=== PATIENT | female | born 1995 | race African-American/Black ===

== ENCOUNTER 2025-02-07 12:00 | Emergency (ER) | payer MEDICARE, SELFPAY ==
--- OUTSIDE RECORDS SUMMARY | 2024-11-16 05:30 | XMS_ITS ---
Author Organization [facility] Address [address] [place] [address] Care Team Providers Care Pre Owned Sales Consultant Name Role Phone Haja Doyle Primary Care Provider REASON FOR VISIT 4 WEEK F/U Social History Sex Assigned At : Social History Observation Description Sex Assigned At Female Encounters Encounter Location Date Provider Diagnosis [facility] [address] [place] [address] 11/16/2024 Haja Doyle Plan Of Treatment Next Appt Details Provider Name:Haja Doyle , 02/21/2025 01:00:00 PM, [address] [place], [address], Progress Notes * OMER LUIS DDOB:[birth year] (29 yo F)Acc No.[id number]:11/16/2024 Progress Notes Patient: Savanah HOLMAN OMER Valadez .3 Appointment Provider: Daly Doyle MD :1995 A ge:29 Y S ex:Female Date:11/16/2024 Address:[facility], [address], [id number] Subjective: * Chief Complaints: * 1 . 4 WEEK F/U. * Medical History: Objective: * Vitals: Assessment: Plan: * Treatment: * Images: * Electronic signature of Yung Doyle MD on 02/07/2025 at 12:16 PM EDT Sign off status: Pending * Appointment Provider: Daly Doyle MD Date: 0 11/16/2024 Generated for Jeremy elias/La/Donovan on: 0 02/07/2025 12:16 PM EDT
--- OUTSIDE RECORDS SUMMARY | 2024-11-23 06:45 | XMS_ITS ---
Author Organization [facility] Address [address] [place] [address] Care Team Providers Care Complaint Manager Name Role Phone Haja Doyle Primary Care Provider [phone] REASON FOR VISIT PAP Social History Sex Assigned At : Social History Observation Description Sex Assigned At Female Encounters Encounter Location Date Provider Diagnosis [facility] [address] [place] [address] 11/23/2024 Haja Doyle Plan Of Treatment Next Appt Details Provider Name:Haja Doyle , 02/21/2025 01:00:00 PM, [address] [place], [address], Progress Notes * OMER LUIS DDOB:[birth year] (29 yo F)Acc No.[id number]:11/23/2024 Progress Notes Patient: GARLAND FLORENCEADIJAH Allyson .3 Appointment Provider: Daly Doyle MD :1995 A ge:29 Y S ex:Female Date:11/23/2024 Address:[address], [address], [id number] Subjective: * Chief Complaints: * 1 . PAP. * Medical History: Objective: * Vitals: Assessment: Plan: * Treatment: Care Plan: * Problems: * Images: * Electronic signature of Yung Doyle MD on 02/07/2025 at 12:15 PM EDT Sign off status: Pending * Appointment Provider: Daly Doyle MD Date: 0 11/23/2024 Generated for Jeremy elias/La/Donovan on: 0 02/07/2025 12:15 PM EDT
--- OUTSIDE RECORDS SUMMARY | 2024-12-13 09:15 | XMS_ITS ---
Author Organization [facility] Address [address] [place] [address] Care Team Providers Care Bath Steward/Stewardess Name Role Phone Haja Doyle Primary Care Provider REASON FOR VISIT pap Social History Sex Assigned At : Social History Observation Description Sex Assigned At Female Encounters Encounter Location Date Provider Diagnosis [facility] [address] [place] [address] 12/13/2024 Haja Doyle Plan Of Treatment Next Appt Details Provider Name:Haja Doyle , 02/21/2025 01:00:00 PM, [address] [place], [address], Progress Notes * OMER LUIS DDOB:[birth year] (29 yo F)Acc No.[id number]:12/13/2024 Progress Notes Patient: GARLAND FLORENCEADIJAH Allyson .3 Appointment Provider: Daly Doyle MD :1995 A ge:29 Y S ex:Female Date:12/13/2024 Address:[address], [address], [id number] Subjective: * Chief Complaints: * 1 . Pap. * Medical History: Objective: * Vitals: Assessment: Plan: * Treatment: Care Plan: * Problems: * Images: * Electronic signature of Yung Doyle MD on 02/07/2025 at 12:15 PM EDT Sign off status: Pending * Appointment Provider: Daly Doyle MD Date: 0 12/13/2024 Generated for Jeremy elias/La/Donovan on: 0 02/07/2025 12:15 PM EDT
[2025-02-07 12:04] VITALS: BP 133/104; PULSE 119; TEMP 37.3; O2SAT 99; BMI 57.3
--- OUTSIDE RECORDS SUMMARY | 2025-02-07 12:16 | XMS_ITS | Patient Health Record ---
Author Organization [facility] Address [address] [place] [address] Care Team Providers Care Service Consultant Name Role Phone Haja Doyle Primary Care Provider [phone] Tello Huynh Unavailable [phone] Urban Crouch Unavailable [phone] Jonel Gatica Unavailable [phone] Georgette Lemos Unavailable [phone] Allergies No Known Allergies Results Component Value Reference Range Notes Rapid COVID-19 Reviewed date:04/17/2024 09:48:45 AM Interpretation:NEG Performing Lab: Notes/Report: NEG Results NEG Reason For Referral Reason SCHEDULED 10/16/24 Hypersomnia, BMI 59, mouth breathing, smoker Diagnosis 1 Hypersomnia (G47.10) Referral Organization [facility] ices Referring Provider First Name Urban Referring Provider Last Name Willa Referring Provider Speciality [facility] Referred Provider [facility] SLEEP [facility] ER, . Referred Provider Specialty Sleep Medici ne Referral Priority Routine Medications Medication SIG (Take, Route, Frequency, Duration) Notes Start Date End Date Status Wegovy 0.25 MG/0.5ML INJECT 0.5 ML SUBCUTANEOUSLY ONE TIME PER WEEK for 28 Unknown MiraLax 17 GM/SCOOP 1 scoop mixed with 8 ounces of fluid Orally Once a day Unknown Albuterol Sulfate HFA 108 (90 Base) MCG/ACT 1 puff as needed Inhalation every 4 hrs for 30 days Active ZyPREXA 15 MG 1 tablet Orally Once a day @ for 30 days *SPROUT 12/02/2018 Active traZODone HCl 100 MG 1 tablet at bedtime Orally @ HS w/100 mg tab. *SPROUT Active Depakote 500 MG 1 tablet Orally Twic e a day w/250 mg tab to = 750mg *SPROUT Active Haloperidol 10 MG 2 tablets Orally twi ce daily *SPROUT Active Benztropine Mesylate 1 MG 1 tablet in the a.m. & 2 tablets @ HS Orally BID *SPROUT Active Pantoprazole Sodium 40 MG 1 tablet Orally Once a day Active Naproxen 500 MG 1 tablet with food o r milk as needed Orally every 12 hrs Active Amoxicillin 875 MG 1 tablet Orally Twic e a day Active Social History Tobacco Use: Social History Observation Description Date Details (start date - stop date) Current Smoker NA - NA Sex Assigned At : Social History Observation Description Sex Assigned At Female Tobacco Screen: Question Answer Notes Are you a: current smoker How often do you smoke cigarettes? some days, bu t not every day How many cigarettes a day do you smoke? 5 or les s Sexual Hx: Question Answer Notes Had sex in the last 12 months (vaginal, oral, or anal)? Yes with Both Men and Women Use protection? Yes How often? Most of the time Prevention Strategies discussed: Condoms Have you ever had an STD? Yes Other? Yes LMP: 09/15/2022 Alcohol Screening: Question Answer Notes Did you have a drink contain ing alcohol in the past year? Yes How often did you have a dri nk containing alcohol in the past year? Monthly or less (1 point) How many drinks did you have on a typical day when you were drinking in the past year? 1 or 2 (0 points) How often did you have six o r more drinks on one occasion in the past year? Never (0 points) Points 1 Interpretation Negative PRAPARE Question Answer Notes Date Completed/Updated: 09/13/2024 What is your current housing situation? I have h ousing Are you worried about losing your housing? No What is the highest level of school that you have finished? 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 Check all that apply I do not have problems meeting my needs Has lack of transportation k ept you from medical appointments, meetings, work or from getting things needed for daily living? No How often do you see or talk to people that you care about and feel close to? (For example: talking to friends on the phone, visiting friends or family, going to hinduism or club meetings) 1 or 2 times a week How stressed are you? Stress is when someone feels tense, nervous, anxious, or cant sleep at night because their mind is troubled A little bit In the past year have you sp ent more than 2 nights in a row in a fpc, residential, shelter center, or juvenile correctional facility? No Are you a refugee? No What country are you from? [place] Do you feel physically and e motionally safe where you currently live? Yes In the past year, have you b een afraid of your partner or ex-partner? No PRAPARE Score: 4 AUDIT-C (Standard) Question Answer Notes Did you have a drink contain ing alcohol in the past year? Yes How often did you have six o r more drinks on one occasion in the past year? Less than monthly (1 point) How many drinks did you have on a typical day when you were drinking in the past year? 1 or 2 drinks (0 point) How often did you have a dri nk containing alcohol in the past year? Monthly or less (1 point) Points 2 Interpretation Negative Tobacco Control (Standard) Question Answer Notes Tobacco use: Current smoker Section Notes: No alcohol or other drug use- smokes 1-2 black and milds a day or every other day. 07/29/15 Smokes 1 cigar a week. 10/04/18 Pt reports smoking black and milds, marijuana, and drinking wine 12/01/18 No alcohol or other drug use - smokes 1-2 black and milds a day or every other day. No alcohol or other drug use - smokes 1-2 black and milds a day or every other day. No alcohol or other drug use No alcohol or other drug use No alcohol or other drug use No alcohol or other drug use No alcohol or other drug use No alcohol or other drug use No alcohol or other drug use - smokes 1-2 black and milds a day or every other day. No alcohol or other drug use- smokes 1-2 black and milds a day or every other day. 07/29/15 Smokes 1 cigar a week. No alcohol or other drug use- smokes 1-2 black and milds a day or every other day. 07/29/15 Smokes 1 cigar a week. 10/04/18 Pt reports smoking black and milds, marijuana, and drinking wine No alcohol or other drug use- smokes 1-2 black and milds a day or every other day. 07/29/15 Smokes 1 cigar a week. 10/04/18 Pt reports smoking black and milds, marijuana, and drinking wine 12/01/18 No alcohol or other drug use No alcohol or other drug use- smokes 1-2 black and milds a day or every other day. 07/29/15 Smokes 1 cigar a week. Problems Problem Type SNOMED Code ICD Code Onset Dates Problem Status W/U Status Risk Notes Problem 1697998 Hypocalcemia (E83.51) Active confirmed Problem Tobacco user (932758777) Nicotine dependence, unspecified, uncomplicated (F17.200) Active confirmed Problem 86539097 Schizoaffective Disorder, Bipolar type (F25.0) Active confirmed Problem 96147542 Mouth breathing (R06.5) Active confirmed Problem 226655495 Somnolence (R40.0) Active confirmed Problem 95557033 Essential hypertension (I10) Active confirmed Problem 507929956 Morbid obesity (E66.01) Active confirmed Problem 13608190 Hypersomnia (G47.10) Active confirmed Problem Body mass index 40+ - severely obese (807563497) Body mass index (BMI) 45.0-49.9, adult (Z68.42) Active confirmed Problem 029940588 PCOS (polycystic ovarian syndrome) (E28.2) Active confirmed Problem 75407487 Constipation, unspecified constipation type (K59.00) Active confirmed Problem 3189099 Unprotected sex (Z72.51) Active confirmed Problem 36128175 Chronic fatigue (R53.82) Active confirmed Problem 230098193 Insomnia, unspec ified type (G47.00) Active confirmed Problem 677864936 BMI 50.0-59.9, a dult (Z68.43) Active confirmed Problem 19294184 Hypercholesterem ia (E78.00) Active confirmed Problem 567147664 Elevated LDL cholesterol level (E78.00) Active confirmed Problem 975591074 Major depressive disorder, remission status unspecified, unspecified whether recurrent (F32.9) Active confirmed Problem 695995842 Insulin resistan ce (E88.81) Active confirmed Problem 48441703 Cigarette smoker (F17.210) Active confirmed Vital Signs Heart Rate 102 /min 09/13/2024 Temperature 98.9 degrees Fahrenheit 09/13/2024 Respiratory Rate 20 /min 09/13/2024 Oximetry 92 % 09/13/2024 Blood pressure diastolic 84 mm Hg 09/13/2024 Height 66 in 09/13/2024 Blood pressure systolic 132 mm Hg 09/13/2024 Weight 366.8 lbs 09/13/2024 BMI 59.2 kg/m2 09/13/2024 Encounters Encounter Location Date Provider Diagnosis [facility] [address] [place] [address] 03/29/2024 [facility] [address] [place] [address] 04/04/[address] [facility] [address] [place] [address] 09/05/2024 Haja Doyle [address] [place] [address] 10/17/2024 Haja Doyle [facility] [address] [place] [address] 04/17/2024 Haja Doyle Nicotine dependence, unspecified, uncomplicated F17.200 ; Morbid obesity E66.01 and Exposure to confirmed case of COVID-19 Z20.822 [facility] [address] [place] [place] [address] 09/13/2024 Urban Ramirezl Cigarette smoker F17.210 ; Hypersomnia G47.10 ; BMI 50.0-59.9, adult Z68.43 ; Mouth breathing R06.5 ; Chronic fatigue R53.82 and Morbid obesity E66.01 Assessments Encounter Date Diagnosis (ICD Code) Assessment Notes Treatment Notes Treatment Clinical Notes Section Notes 04/17/2024 Nicotine dependence, unspecified, uncomplicated (ICD-10 - F17.200) 04/17/2024 Morbid obesity (ICD-10 - E66.01) Discussed patient concerns regarding covid, weight, and wheezing. A covid test in the office was negative today. We will start the patient on Wegovy for her weight loss concerns. We reviewed healthy eating habits along with regular exercise to support weight loss. I will refill her albuterol inhaler today. Risks, benefitis, and complications of treatment plan were explained. Patient is agreeable to this plan and denies any concerns. She will follow up in 1 month. 09/13/2024 Hypersomnia (ICD-10 - G47.10) 09/13/2024 Cigarette smoker (ICD-10 - F17.210) 09/13/2024 BMI 50.0-59.9, adult (ICD-10 - Z68.43) 04/17/2024 Exposure to confirmed case of COVID-19 (ICD-10 - Z20.822) 09/13/2024 Mouth breathing (ICD-10 - R06.5) 09/13/2024 Chronic fatigue (ICD-10 - R53.82) 09/13/2024 Morbid obesity (ICD-10 - E66.01) 04/17/2024 Other Body Mass Index: Care Instructions material was published 09/13/2024 Other Learning About Benefits of Quitting Smoking material was published, Learning About Benefits of Quitting Smoking material was published, Body Mass Index: Care Instructions material was published Omer is here for ER FU. Results reviewed aside from tachycardia plus minimal elevation of carboxyhemglobin work up was benign. GF at home smokes much more and in the house. On going GI symptoms but with work up pending. Last colonoscopy Dr. Denton incomplete bowel prep, started on Linsess needs more fiberous food. Slight tachycardia 102, sat 92% otherwise vitals normal. Crowded airway, BMI 59.2, loud breathing, excessive somnolense on exam. Denies gas heating but smokes cigarettes 1 pack a week has patches and gum at home. Noncompliant. Patient educated. Red oral cavity is from undissolved truong-aid powder. BMI 59. All risk factors/Signs/Syx present for VIK, no history sleep study. Brain fog/dizziness likely to improve once allocated for CPAP which is likely. Resume follow up with PCP. Plan Of Treatment Next Appt Details Provider Name:Haja Doyle , 02/21/2025 01:00:00 PM, [address], [place], [address], Insurance Providers Payer Name Payer Address Payer Phone Subscriber Number Group Number Insured Name Patient Relationship to Insured Coverage Start Date Coverage End Date [employer] MDCR GOLD PLUS HMO [address] [address] [place] [address] [id number] FARA LUISJAH Self - patient is the insured 4 MEDICAID SEC TO MCARE ADV [address] [place] [address] [id number] GARLAND LUISADIJAH Self - patient is the insured 1 MEDICARE CGS 1 JENNY SIL[facility] [address] [phone] [id number] OMER LUIS Self - patient is the insured 1 Medical (General) History Medical History History ICD Code LEARNING DISABILITY DEPRESSION attempted suicide Jul 2013 Surgical History Surgery Date(Month/Year) removed skin lesion on right forearm EGD 01/2021 Hospitalization History Reason Date(Month/Year) Behavioral Health 10/2018
--- NOTE | 2025-02-07 12:21 | ECG_ITS ---
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 Measurements Intervals [place] Rate: 88 P: 44 [place]: 134 QRS: 41 QRSD: 78 T: -4 QT: 342 QTc: 388 Interpretive Statements 1100 Sinus rhythm 4068 Nonspecific Twave abnormality Abnormal ECG No previous ECG available for comparison Electronically Signed On 02-07-2025 17:53:36 EDT by JOLIE UNDERWOOD M.D.
[2025-02-07 12:53] LABS: Bilirubin Urine NEGATIVE (NEGATIVE); Blood Urine LARGE (NEGATIVE); Clarity Urine SL CLOUDY (CLEAR); Color Urine LT. YELLOW (YELLOW); Glucose Urine UA NEGATIVE (NEGATIVE); Ketones Urine NEGATIVE (NEGATIVE); Leukocyte Esterase Urine TRACE (NEGATIVE); Nitrite Urine NEGATIVE (NEGATIVE); Protein Urine TRACE mg/dL (NEG/TRACE); Urine Microscopic Indicated YES; pH Urine 7.5 (5.0-9.0)
[2025-02-07 13:02] LABS: Bacteria Urine SMALL #/HPF (NONE SEEN); Mucus Urine NONE SEEN (NONE SEEN); RBC Urine 50-75 #/HPF (0-2); Squamous Epithelial Cell Urine FEW #/LPF (NONE/RARE); WBC Urine 0-2 #/HPF (NONE SEEN)
[2025-02-07 13:03] LABS: Cast Seen? NONE SEEN #/LPF (NONE SEEN); Crystals Seen? None Seen #/HPF (None Seen); Urine Culture Indicated YES-FRMC
[2025-02-07 13:06] LABS: Basophils Percent Auto 0.7 % (0.2-2.0); Eosinophils Absolute Auto 0.3 10^3/uL (0.0-0.7); Eosinophils Percent Auto 4.1 % (0.9-7.0); Immature Granulocytes Abs Auto 0.02 10^3/uL (0.00-0.03); Immature Granulocytes Pct Auto 0.3 % (0.0-0.5); Lymphocytes Absolute Auto 2.2 10^3/uL (1.2-3.8); Lymphocytes Percent Auto 35.4 % (20.5-60.0); Mean Corpuscular HGB Conc 32.4 g/dL (29.9-35.2); Mean Corpuscular Hemoglobin 29.5 pg (26.7-34.0); Mean Corpuscular Volume 90.9 fL (81.0-99.0); Mean Platelet Volume 10.3 fL (9.5-13.5); Monocytes Absolute Auto 0.6 10^3/uL (0.3-0.8); Monocytes Percent Auto 10.2 % (1.7-12.0); Neutrophils Percent Auto 49.3 % (43.0-75.0); Platelet Count 316 10^3/uL (150-450); Red Blood Count 4.07 10^6/uL (4.20-5.40); Red Cell Distribution Width 13.2 % (11.0-15.0); White Blood Count 6.2 10^3/uL (4.0-11.0)
[2025-02-07 13:17] LABS: INR 1.07; Prothrombin Time 11.3 sec (9.0-11.6)
[2025-02-07 13:19] LABS: HCG Qualitative NEGATIVE (NEGATIVE); Internal Control Within Normal Limits
[2025-02-07 13:22] LABS: Alanine Aminotransferase 13 U/L (14-59); Albumin Globulin Ratio 0.8; Albumin Level 3.1 g/dL (3.4-5.0); Alkaline Phosphatase 77 U/L (46-116); Anion Gap 11.5; Aspartate Amino Transferase 7 U/L (15-37); Bilirubin Total 0.2 mg/dL (0.2-1.0); Calcium 8.5 mg/dL (8.5-10.1); Carbon Dioxide 29.4 mmol/L (21.0-32.0); Chloride 103 mmol/L (98-107); Estimated GFR (African America >60 (>=60 mL/min/1.73m^2); Estimated GFR (Non-African Ame >60 (>=60 mL/min/1.73m^2); Globulin 4.1 g/dL; Glucose 81 mg/dL (74-106); Potassium 3.9 mmol/L (3.5-5.1); Sodium 140 mmol/L (136-145); Total Protein 7.2 g/dL (6.4-8.2)
[2025-02-07 13:27] LABS: Troponin I High Sensitivity <4.0 pg/mL (4.0-51.3)
--- NOTE | 2025-02-07 13:27 | CT_ITS ---
The [address] [address] Patient Name: OMER LUIS MRN: [id number] date: 1995 Sex: F Assigned Patient Location: ER Current Patient Location: ER Accession/Order Number: [id number] Exam Date: 02/07/2025 13:58 Report Date: 02/07/2025 14:04 At the request of: MARCE FRANK MD Procedure: CT abdomen pelvis wo con CT Abdomen and Pelvis withoutcontrast TECHNIQUE: Axial imaging with 2-D reconstruction. . The CT exam was performed using one or more the following dose reduction techniques: Automated exposure control, adjustment of the MA and/or Kv according to patient size, or use of the iterative reconstruction technique. COMPARISON: None History: Abdominal pain. Hematuria. Blood in stool. Right lower quadrant pain for one year. LIMITATIONS: None LOWER THORAX Unremarkable LIVER: Unremarkable GALLBLADDER: No gallbladder abnormality identified. BILE DUCTS: No dilatation SPLEEN: Unremarkable PANCREAS: Unremarkable ADRENAL GLANDS: Unremarkable KIDNEYS:Unremarkable AORTA: No abdominal aortic aneurysm identified. RETROPERITONEUM: No significant retroperitoneal abnormalities identified. MESENTERY:Unremarkable STOMACH:Unremarkable SMALL BOWEL: The small bowel loops are nondistended. APPENDIX: The appendix is normal. COLON: Moderate burden of stool throughout the colon. URINARY BLADDER: Urinary bladder is unremarkable. REPRODUCTIVE SYSTEM: Reproductive structures are unremarkable. PNEUMOPERITONEUM: None PERITONEAL FLUID:None BONY STRUCTURES: Unremarkable ABDOMINAL WALL: Unremarkable CT/CT abdomen pelvis wo con IMPRESSION: No nephrolithiasis or obstructive uropathy. Moderate constipation. Impression dictated by: William Ashley M.D. 02/07/2025 2:04 PM Dictation Location: [place] [address] Electronically authenticated by: [id number] Y Date: 02/07/2025 14:04
[2025-02-07] MEDS: FAMOTIDINE/PF 20 MG/2 ML VIAL IV (13:54)
[2025-02-07] MEDS: KETOROLAC TROMETHAMINE 30 MG/ML VIAL 15 MG IVP (13:54)
--- NOTE | 2025-02-07 14:00 | ED.ABDPAIN1 ---
HPI - Abdominal Pain General Chief Complaint: Abdominal Pain Stated Complaint: ABDOMINAL PAIN Time Seen by Provider: 02/07/25 12:14 Source: patient Mode of arrival: walk-in History of Present Illness HPI narrative: The patient 29-year-old female who is coming to the ER with a history of chronic abdominal pain but there is exacerbation the pain for the last few days, he mentioned that for the last 2 to 3 days she has been having the left upper quadrant pain that is severe in addition to left lower quadrant. The pain associated with constipation and sometimes blood in stool although the patient admits that she have history of constipation and she does have history of hemorrhoids The patient mentioned that she denies any fever chills or any other complaint she has no nausea no vomiting but the last menstruation was 2 months ago and she is having her menstruation right now as well Related Data Home Medications ?Medication ?Instructions ?Recorded ?Confirmed benztropine 1 mg tablet 1 mg PO QAM 02/07/25 02/07/25 benztropine 2 mg tablet 2 mg PO QPM 02/07/25 02/07/25 divalproex 250 mg tablet,delayed 250 mg PO BID 02/07/25 02/07/25 release haloperidol 10 mg tablet 10 mg PO DAILY 02/07/25 02/07/25 olanzapine 15 mg tablet 15 mg PO DAILY 02/07/25 02/07/25 trazodone 100 mg tablet 100 mg PO DAILY 02/07/25 02/07/25 Previous Rx's ?Medication ?Instructions ?Recorded bisacodyl 5 mg tablet,delayed 5 mg PO DAILY PRN constipation #10 02/07/25 release (Dulcolax (bisacodyl)) tabs magnesium citrate 296 ml PO ONCE #296 mL 02/07/25 Allergies Allergy/AdvReac Type Severity Reaction Status Date / Time No Known Drug Allergies Allergy Verified 02/07/25 12:07 Review of Systems ROS Status of ROS 10 or more systems reviewed and unremarkable except as noted in history and below PFSH PFSH Social History Little interest or pleasure in doing things: not at all Feeling down, depressed, or hopeless: not at all Exam Narrative Exam Narrative: Nurses notes and vital signs reviewed and patient is not hypoxic. General: Well-appearing and in no apparent distress. Skin: Warm, dry, no pallor noted. No rash. Head: Normocephalic, atraumatic. Neck: Supple, non-tender. Cardiovascular: Regular Rate and Rhythm without murmur, gallop or rub. Respiratory: No accessory muscle use or respiratory distress. Lungs are clear to auscultation, no wheezing, rales or rhonchi Chest Wall: no tenderness Back: No midline thoracic or lumbar vertebral tenderness. No CVA tenderness Musculoskeletal: normal ROM, no calf or popliteal tenderness, no lower extremity edema/swelling GI: Abdomen is soft, left upper quadrant tenderness on the palpation as well as left lower quadrant tenderness Neurological: A&O x4. No cranial nerve dysfunction observed. Constitutional Vital Signs, click to edit/add: Last Vital Signs Temp 99.2 F 02/07/25 12:04 Pulse 76 02/07/25 14:59 Resp 16 02/07/25 14:59 BP 119/92 H 02/07/25 14:59 Pulse Ox 97 02/07/25 14:59 O2 Del Method Room Air 02/07/25 14:59 Course Vital Signs Vital signs: Vital Signs Temperature 99.2 F 02/07/25 12:04 Pulse Rate 119 H 02/07/25 12:04 Respiratory Rate 20 02/07/25 12:04 Blood Pressure 133/104 H 02/07/25 12:04 Pulse Oximetry 99 02/07/25 12:04 Oxygen Delivery Method Room Air 02/07/25 12:04 Temperature 99.2 F 02/07/25 12:04 Pulse Rate 76 02/07/25 14:59 Respiratory Rate 16 02/07/25 14:59 Blood Pressure 119/92 H 02/07/25 14:59 Pulse Oximetry 97 02/07/25 14:59 Oxygen Delivery Method Room Air 02/07/25 14:59 MDM - Abdominal Pain MDM Narrative Medical decision making narrative: The patient EKG showing sinus rhythm with a heart rate of [address] elevation or depression The patient CBC and chemistry showed no acute significant pathology but there was a lot of hematuria in her urine and with her history of having her menstruation it is hard to tell if this pain is secondary to that or due to a kidney stone as well although the patient her pain is mostly left upper quadrant not left flank The patient CT of the abdomen pelvis showed that that she has constipation no acute other significant pathology test is negative Urinalysis showed no UTI The patient was treated in the ER with Toradol discharged home with magnesium citrate as 1 dose in addition to starting Dulcolax daily as needed for constipation on the next day The patient is to follow up with primary care physician in next 2-3 days or to return to the emergency department should any of the signs or symptoms worsen or new symptoms develop. The patient agrees with the following Diagnosis and Treatment plan and the patient will be discharged home. Lab Data Labs: Lab Results 02/07/25 02/07/25 Range/Units 12:29 12:50 WBC 6.2 (4.0-11.0) 10^3/uL RBC 4.07 L (4.20-5.40) 10^6/uL Hgb 12.0 (12.0-16.0) g/dL Hct 37.0 (36.0-48.0) % MCV 90.9 (81.0-99.0) fL MCH 29.5 (26.7-34.0) pg MCHC 32.4 (29.9-35.2) g/dL RDW 13.2 (11.0-15.0) % Plt Count 316 (150-450) 10^3/uL MPV 10.3 (9.5-13.5) fL Neut % (Auto) 49.3 (43.0-75.0) % Lymph % (Auto) 35.4 (20.5-60.0) % [place] % (Auto) 10.2 (1.7-12.0) % Eos % (Auto) 4.1 (0.9-7.0) % Baso % (Auto) 0.7 (0.2-2.0) % Neut # (Auto) 3.0 (1.4-6.5) 10^3/uL Lymph # (Auto) 2.2 (1.2-3.8) 10^3/uL [place] # (Auto) 0.6 (0.3-0.8) 10^3/uL Eos # (Auto) 0.3 (0.0-0.7) 10^3/uL Baso # (Auto) 0.0 (0.0-0.1) 10^3/uL Abs Immat Gran (auto) 0.02 (0.00-0.03) 10^3/uL Imm/Tot Granulo (auto) 0.3 (0.0-0.5) % PT 11.3 (9.0-11.6) sec INR 1.07 Sodium 140 (136-145) mmol/L Potassium 3.9 (3.5-5.1) mmol/L Chloride 103 (98-107) mmol/L Carbon Dioxide 29.4 (21.0-32.0) mmol/L Anion Gap 11.5 BUN 7.0 (7.0-18.0) mg/dL Creatinine 0.78 (0.55-1.02) mg/dL Est GFR ( Amer) >60 (>=60 mL/min/1.73m^2) Est GFR (Non-Af Amer) >60 (>=60 mL/min/1.73m^2) BUN/Creatinine Ratio 9.0 Glucose 81 (74-106) mg/dL Calcium 8.5 (8.5-10.1) mg/dL Total Bilirubin 0.2 (0.2-1.0) mg/dL AST 7 L (15-37) U/L ALT 13 L (14-59) U/L Alkaline Phosphatase 77 (46-116) U/L Troponin I High Sens <4.0 L (4.0-51.3) pg/mL Total Protein 7.2 (6.4-8.2) g/dL Albumin 3.1 L (3.4-5.0) g/dL Globulin 4.1 g/dL Albumin/Globulin Ratio 0.8 Serum HCG, Qual Negative (NEGATIVE) Urine Color Lt. yellow (YELLOW) Urine Clarity Sl cloudy (CLEAR) Urine pH 7.5 (5.0-9.0) Ur Specific [place] 1.010 (1.005-1.025) Urine Protein Trace (NEG/TRACE) mg/dL Urine Glucose (UA) Negative (NEGATIVE) mg/dL Urine Ketones Negative (NEGATIVE) mg/dL Urine Occult Blood Large A (NEGATIVE) Urine Nitrite Negative (NEGATIVE) Urine Bilirubin Negative (NEGATIVE) Urine Urobilinogen 1.0 (0.2-1.0) EU/dL Ur Leukocyte Esterase Trace A (NEGATIVE) Urine RBC 50-75 A (0-2) #/HPF Urine WBC 0-2 A (NONE SEEN) #/HPF Ur Squamous Epith Cells Few A (NONE/RARE) #/LPF Urine Crystals None seen (None Seen) #/HPF Urine Bacteria Small A (NONE SEEN) #/HPF Urine Casts None seen (NONE SEEN) #/LPF Urine Mucus None seen (NONE SEEN) Ur Culture Indicated? Yes-[facility] [place] Discharge Plan Discharge Chief Complaint: Abdominal Pain Clinical Impression: Constipation, Abdominal pain Patient Disposition: Home, Self-Care Time of Disposition Decision: 14:35 Condition: Good Prescriptions / Home Meds: New magnesium citrate Solution 296 ml PO ONCE Qty: 296 0RF bisacodyl [Dulcolax (bisacodyl)] 5 mg tablet,delayed release (DR/EC) 5 mg PO DAILY PRN (Reason: constipation) Qty: 10 0RF No Action benztropine 1 mg tablet 1 mg PO QAM benztropine 2 mg tablet 2 mg PO QPM divalproex 250 mg tablet,delayed release (DR/EC) 250 mg PO BID haloperidol 10 mg tablet 10 mg PO DAILY olanzapine 15 mg tablet 15 mg PO DAILY trazodone 100 mg tablet 100 mg PO DAILY Print Language: Setswana Instructions: Constipation (DC) Referrals: [facility] [Primary Care Provider] - 1 week
[2025-02-07 14:59] VITALS: BP 119/92; PULSE 76; O2SAT 97
== END 2025-02-07 14:59 | disposition home or self-care (01) ==
PROVIDERS: Emergency Provider Emergency Medicine
DX: K59.00 Constipation, unspecified (principal); R10.84 Generalized abdominal pain
CPT/HCPCS: 36415; 74176; 80053; 81001; 84484; 84703; 85025; 85610; 87086; 93005; 96374; 96375; 99285; J1885; J3490

== ENCOUNTER 2025-03-19 15:57 | Outpatient (OUT) | payer MEDICARE, SELFPAY ==
--- OUTSIDE RECORDS SUMMARY | 2024-10-12 09:59 | XMS_ITS | Continuity of Care Document ---
Author Organization [facility] Address [address] [place] [address] Phone Care Team Providers Care Society Reporter Name Role Phone Mykelquinton MARY JANEFarida Unavailable [...] Oral Eval ROUTINE VENIPUNCTURE OFFICE/OUTPATIENT VISIT, [facility] URINE TEST Obtaining screen pap smear CA screen;pelvic/breast exam OFFICE/OUTPATIENT VISIT, [facility] URINE TEST PREV VISIT, EST, AGE 18-39 [...] 18-39 [facility]DH SPECIMEN HANDLING (GC/CHLAMYDIA) December [facility] FP MEDICAID [facility] FP MEDICAID [facility] MEDICAID OFFICE/OUTPATIENT VISIT, EST [facility] MEDICAID URINE TEST Medroxyprogesterone Acetate 104 [...] Diagnoses Date Provider Providers Copied on Encounter [facility], [address] [place] [address], [id number] , [place] tel: [phone] Dental Clinic Dental limited (chief complaint) Encounter for screening for dental disorders 5 Cande Iqbal. . [phone] OFFICE/OUTPA TIENT VISIT, [facility], [address] [place] [address], [id number] , [place] tel: [phone] [facility] annual exam (chief complaint) Encounter for gynecological examination (general) (routine) without abnormal findingsBody mass index [BMI] 60.0-69.9, adultEncounter for screening for HIVEncounter for STD screeningOther problem related to lifestyleEncou nter for repeat prescription for BCPEncounter for test, result negative 1 Alexandru Thorpe. [address] [place] [address], [id number], [place]. [phone] OFFICE/OUTPA TIENT VISIT, [facility], [address] [place] [address], [id number] , [place] tel: [phone] DANIEL [facility] care (chief complaint) Left upper quadrant abdominal painConstipati on, unspecified constipation typeBody mass index (BMI) 40.0-44.9, adultBody mass index [BMI] 60.0-69.9, adult Nov- 1 Lokesh DURANP Janet. [address] [place] [address], [id number], [place]. tel:[phone] PREV VISIT, EST, AGE 18-39 [facility], [address] [place], [place], [id number] , [place] tel: [phone] [facility] annual exam (chief complaint) Encntr for molecular pathologist exam (general) (routine) w/o abn findingsEncoun ter for screening for HIVEncounter for test, result negativeOther problem related to lifestyleEncou nter for STD screeningEncou nter for repeat prescription for BCPBody mass index (BMI) 40.0-44.9, adult 8 [facility] Ial. [address] [place] [address], [id number], [place]. tel:[phone] [facility], [address] [place] [address], [id number] , [place] tel: [phone] [facility] Colpo (chief complaint) Encounter for test, result negativeLGSIL on cytologic smear of cervix 7 Jeremyi DO Ankit. [address] [place] [address], [id number], [place]. tel:[phone] OFFICE/OUTPA TIENT VISIT, EST [facility], [address] [place] [address], [id number] , [place] tel: [phone] [facility] contraception (chief complaint) Encounter for repeat prescription for BCPLGSIL on pap smear of cervix 6 [facility] Ila. [address] [place] [address], [id number], [place]. tel:[phone] Referring Provider: Ila Horvath [facility] Soledad, [address] [place] [address], [id number] . tel:[phone] PREV VISIT, EST, AGE 18-39 [facility], [address] [place] [address], [id number] , [place] tel:[phone] [facility] annual exam (chief complaint)cont raception (chief complaint)abno rmal pap smear (chief complaint) Encounter for general molecular pathologist exam without abnormal findingEncount er for repeat prescription for BCPEncounter for STD screeningOther problem related to lifestyleEncou nter for test, result negativeTricho monal vulvovaginitis Chlamydial infectionASCUS on pap smear of cervix 6 Alexandru [facility] Ila. [address] [place], [place], [id number], [place]. tel:[phone] OFFICE/OUTPA TIENT VISIT, EST [facility], [address] [place], [place], [id number] , [place] tel: [phone] [facility] screening (chief complaint) Encounter for screening for HIVEncntr screen for infections w sexl mode of transmissOther problems related to lifestyle 6 Kalina Vuong. [address] [place], [place], [id number], [place]. tel:[phone] PREV VISIT, EST, AGE 18-39 [facility], [address] [place] [address], [id number] , [place] tel: [phone] [facility] Update (chief complaint)stan al exam (chief complaint)cont raception (chief complaint) ROUTINE JIG WORKER EXAMINATIONOth er specified contraceptive management 5 [facility] Ial. [address] [place] [address], [id number], [place]. [phone] PREV VISIT, EST, AGE 18-39 [facility], [address] [place] [address], [id number] , [place] tel: [phone] [facility] annual visit (chief complaint) Gynecological ExaminationOth er specified contraceptive management 4 [facility] Ila. [address] [place] [address], [id number], [place]. tel:[phone] [facility], [address] [place] [address], [id number] , [place] tel:[phone] [facility] No Information 2 Sarath Guzmán. [address] [place] [address], [id number], [place]. [phone] [facility], [address] [place], [place], [id number] , [place] tel: [phone] [facility] No Information 1 Sarath Guzmán. [address] [place], [place], [id number], [place]. tel:[phone] OFFICE/OUTPA TIENT VISIT, [facility], [address] [place], [place], [id number] , [place] tel: [phone] [facility] No Information 0 Sarath Guzmán. [address] [place], [place], [id number], [place]. tel:[phone] [facility], [address] [place], [place], [id number] , [place] tel: [phone] [facility] No Information 0 Donnellwherrol ROJO Tiffany. [address] [place], [place], [id number]. tel:[phone] OFFICE/OUTPA TIENT VISIT, [facility], [address] [place], [place], [id number] , [place] tel: [phone] [facility] No Information 0 Visci DO Ankit. [address] [place], [place], [id number], [place]. tel:[phone] OFFICE/OUTPA TIENT VISIT, [facility], [address] [place], [place], [id number] , [place] tel: [phone] [facility] No Information 9 Mawhirbelen RETAIL PARTS PROFESSIONAL Tiffany. [address] [place], [place], [id number]. tel:[phone] PREV VISIT, [facility], AGE 12-17 [facility], [address] [place], [place], [id number] , [place] tel: [phone] [facility] No Information 9 No Information OFFICE/OUTPA TIENT VISIT, [facility], [address] [facility], [place], [place], [id number] , [place] tel:[phone] [facility] No Information Sep-0 4200 8 No Information [...] well Payers Payer name Insurance type Covered green party ID Bri scottjoslyn(s) Allyson [employer] 17 [id number] D Medicaid [facility] [id number] Social History Type Description Quantity Date Captured [...] screening . Due on due Goal Dietary manageme nt education, guidance, and counseling completed Goal Tobacco cessation counseling completed Goal Dietary manageme nt education, guidance, and counseling completed Goal Dietary manageme nt education, guidance, and counseling completed Goal Tobacco cessation counseling completed Goal Tobacco cessation counseling completed Goal Dietary manageme nt education, guidance, and counseling completed Goal Tobacco cessation counseling completed Goal Tobacco cessation counseling completed Goal Tobacco cessation counseling completed Referral Ordered: Gastroenterology (related to Left upper quadrant abdominal pain) ordered Referral Ordered: Referrals: Gastroenterology ordered Appointment Jackie Denton BOOKED History Of Present Illness Encounter Date Complaint [...] physician.. est care Pt here to cassidy mccabe. Pt states she was recently in [facility] d/t L upper and lower abdomen [...] or concerns. Cathy, RNNoted above. Records from [facility] were obtained and went over labs with patient. Patient states that her pain is better after she has a bowel movement. She was on Colace in the past and would like to try it again. RX sent to pharmacy. Referral to GI was also put in. Advised to call the office if symptoms worsen. Kerry MCWILLIAMS-ALIA annual exam Currently pregna nt: no. Patient [...] Patient is here for annual exam. 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 Patient is planning on having her sisiter take her to pickle maker pills today. Rescheduled for colposcopy on 10/01/2016. [...] if desires results. Related to Encntr for molecular pathologist exam (general) (routine) w/o abn findings HIV negative in offi ce today. RPR sent to lab. Related to Encounter for screening for HIV Cervical cultures se nt to lab. Patient to call in 1 week for results Related to Encounter for STD screening Encouraged to start Januaryl with the onset of her next menses. [...] desires results. Related to Encounter for general molecular pathologist exam without abnormal finding Encouraged to start Januarylwith the onset of her next menses. Take [...] given to patient today Related to ROUTINE JIG WORKER EXAMINATION Assessments Type Assessment Date No Information Patient Care Teams Name Effective Dates (start - stop) Status Members No Information
--- OUTSIDE RECORDS SUMMARY | 2024-11-23 06:45 | XMS_ITS ---
Author Organization [facility] Address [address] [place] [address] Care Team Providers Care Bilingual Interpreter Name Role Phone Haja Doyle Primary Care Provider REASON FOR VISIT PAP Social History Sex Assigned At : Social History Observation Description Sex Assigned At Female Encounters Encounter Location Date Provider Diagnosis [facility] [address] [place] [address] 11/23/2024 Haja Doyle Plan Of Treatment No Information Progress Notes * OMER LUIS DDOB:[birth year] (29 yo F)Acc No.[id number]:11/23/2024 Progress Notes Patient: OMER FLORENCE .3 Appointment Provider: Daly Doyle MD :1995 A ge:29 Y S ex:Female Date:11/23/2024 Address:[facility] [address], [place], [place] Subjective: * Chief Complaints: * 1 . PAP. * Medical History: Objective: * Vitals: Assessment: Plan: * Treatment: Care Plan: * Problems: * Images: * Electronic signature of Yung Doyle MD on 03/19/2025 at 03:59 PM EDT Sign off status: Pending * Appointment Provider: Daly Doyle MD Date: 11/23/2024 Generated for Printi ng/Faemigdiog/eTransmitting on: 0 03/19/2025 03:59 PM EDT
--- OUTSIDE RECORDS SUMMARY | 2024-12-13 09:15 | XMS_ITS ---
Author Organization [facility] Address [address] [place] [address] Care Team Providers Care Electric Brain Wave Equipment Mechanic Name Role Phone Haja Doyle Primary Care Provider [phone] REASON FOR VISIT pap Social History Sex Assigned At : Social History Observation Description Sex Assigned At Female Encounters Encounter Location Date Provider Diagnosis [facility] [address] [place] [address] 12/13/2024 Haja Doyle Plan Of Treatment No Information Progress Notes * OMER LUIS DDOB:[birth year] (29 yo F)Acc No.[id number]:12/13/2024 Progress Notes Patient: OMER FLORENCE .3 Appointment Provider: Daly Doyle MD :1995 A ge:29 Y S ex:Female Date:12/13/2024 Address:[facility] [address], [place], [place] Subjective: * Chief Complaints: * 1 . Pap. * Medical History: Objective: * Vitals: Assessment: Plan: * Treatment: Care Plan: * Problems: * Images: * Electronic signature of Yung Doyle MD on 03/19/2025 at 03:59 PM EDT Sign off status: Pending * Appointment Provider: Daly Doyle MD Date: 12/13/2024 Generated for Printi ng/Faxing/eTransmitting on: 0 03/19/2025 03:59 PM EDT
--- OUTSIDE RECORDS SUMMARY | 2025-02-21 09:00 | XMS_ITS ---
Author Organization [facility] Address [address] [place] [address] Care Team Providers Care Stitch Burnisher Name Role Phone Haja Doyle Primary Care Provider [phone] Social History Sex Assigned At : Social History Observation Description Sex Assigned At Female Encounters Encounter Location Date Provider Diagnosis [facility] [address] [place] [address] 02/21/2025 Haja Doyle Plan Of Treatment No Information Progress Notes * OMER LUIS DDOB:[birth year] (29 yo F)Acc No.[id number]:02/21/2025 Progress Notes Patient: OMER FLORENCE .3 Appointment Provider: Daly Doyle MD :1995 A ge:29 Y S ex:Female Date:02/21/2025 Address:[facility] [address] , [address] [id number] Subjective: * Chief Complaints: * * Medical History: Objective: * Vitals: Assessment: Plan: * Treatment: Care Plan: * Problems: * Images: * Electronic signature of Yung Doyle MD on 03/19/2025 at 03:59 PM EDT Sign off status: Pending * Appointment Provider: Daly Doyle MD Date: 02/21/2025 Generated for Printi ng/Faemigdiog/eTransmitting on: 03/19/2025 03:59 PM EDT
--- OUTSIDE RECORDS SUMMARY | 2025-03-19 16:00 | XMS_ITS | Patient Health Record ---
Author Organization [facility] Address [address] [place] [address] Care Team Providers Care Survey Party Chief Name Role Phone Yanira Haja Primary Care Provider [phone] Tello Koroma Unavailable [phone] Urban Crouch Unavailable [phone] Jonel Gatica Unavailable [phone] Georgette Lemos Unavailable [phone] Allergies No Known Allergies Results Component Value Reference Range Notes Rapid COVID-19 Reviewed date:04/17/2024 09:48:45 AM Interpretation:NEG Performing Lab: Notes/Report: NEG Results NEG Reason For Referral Reason SCHEDULED 10/16/24 Hypersomnia, BMI 59, mouth breathing, smoker Diagnosis 1 Hypersomnia (G47.10) Referral Organization [facility] ices Referring Provider First Name Urban Referring Provider Last Name Willa Referring Provider Speciality Family [facility] Referred Provider [facility], . 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 Stress is when someone feels tense, nervous, anxious, or cant sleep at night because their mind is troubled A little bit In the past year have you sp ent more than 2 nights in a row in a assisted, nursing home, custodial center, or juvenile correctional facility? No Are [...] Section Notes: No alcohol or other drug use No [...] wine 12/01/18 No alcohol or other drug use- smokes 1-2 black and milds a day or every other day. 07/29/15 Smokes 1 cigar a week. 10/04/18 Pt reports smoking black and milds, marijuana, and drinking wine 12/01/18 No alcohol or other drug use- smokes 1-2 black and milds a day or every other day. 07/29/15 Smokes 1 cigar a week. No alcohol or other drug use - smokes 1-2 black and milds a day or every other day. Problems Problem Type SNOMED Code ICD Code Onset Dates Problem Status W/U Status Risk Notes Problem Hypocalcemia (3887346) Hypocalce mike (E83.51) Active confirmed Problem Tobacco user (885115955) Nicotine dependence, unspecified, uncomplicated (F17.200) Active confirmed Problem Schizoaffective disorder, bipolar type (09335237) Schizoaffective Disorder, Bipolar type (F25.0) Active confirmed Problem Mouth breathing (66909161) Mouth breathing (R06.5) Active confirmed Problem Somnolence (75134999) Somnolence (R40.0) Active confirmed Problem Essential hypertensi on (30014721) Essential hypertension (I10) Active confirmed Problem Morbid obesity (891535923) Morbid obesity (E66.01) Active confirmed Problem Hypersomnia (31858746) Hypersomn ia (G47.10) Active confirmed Problem Body mass index 40+ - severely obese (921664759) Body mass index (BMI) 45.0-49.9, adult (Z68.42) Active confirmed Problem Polycystic ovary syndrome (disorder) (843035167) PCOS (polycystic ovarian syndrome) (E28.2) Active confirmed Problem Constipation (57784744) Constipation, unspecified constipation type (K59.00) Active confirmed Problem High risk sexual behavior (569876515) Unprotected sex (Z72.51) Active confirmed Problem Chronic fatigue syndrome (10458307) Chronic fatigue (R53.82) Active confirmed Problem Insomnia (274110954) Insomnia, unspecified type (G47.00) Active confirmed Problem Body mass index 40+ - severely obese (711429876) BMI 50.0-59.9, adult (Z68.43) Active confirmed Problem hypercholesterolemia (disorder) (75553593) Hypercholesteremia (E78.00) Active confirmed Problem Pure hypercholesterolemia (419422090) Elevated LDL cholesterol level (E78.00) Active confirmed Problem Major depression, single episode (48852147) Major depressive disorder, remission status unspecified, unspecified whether recurrent (F32.9) Active confirmed Problem Insulin resistance (383666899) Insulin resistance (E88.81) Active confirmed Problem Cigarette smoker (10850734) Cigarette smoker (F17.210) Active confirmed Vital Signs Heart Rate 102 /min 09/13/2024 Temperature 98.9 degrees Fahrenheit 09/13/2024 Respiratory Rate 20 /min 09/13/2024 Oximetry 92 % 09/13/2024 Blood pressure diastolic 84 mm Hg 09/13/2024 Height 66 in 09/13/2024 Blood pressure systolic 132 mm Hg 09/13/2024 Weight 366.8 lbs 09/13/2024 BMI 59.2 kg/m2 09/13/2024 Encounters Encounter Location Date Provider Diagnosis [facility][1] [address] [place] [address] 03/29/2024 [facility] [address] [place] [address] 04/04/2024 [facility] [address] [place] [address] 09/05/2024 Haja Doyle [address] [place] [address] 10/17/2024 Haja natalya [facility][1] [address] [place] [address] 04/17/2024 Haja Doyle Nicotine dependence, unspecified, uncomplicated F17.200 ; Morbid obesity E66.01 and Exposure to confirmed case of COVID-19 Z20.822 [facility][1] [address] [place] [address] 09/13/2024 Urban Crouch Cigarette smoker F17.210 ; Hypersomnia G47.10 ; [...] follow up with PCP. Plan Of Treatment No Information Insurance Providers Payer Name Payer Address Payer Phone Subscriber Number Group Number Insured Name Patient Relationship to Insured Coverage Start Date Coverage End Date [employer] MDCR GOLD PLUS HMO [address] [address] [place] [phone] [id number] OMER [place] Self - patient is the insured 4 MEDICAID SEC TO [place] ADV [address] [place] [address] [id number] OMER [place] Self - patient is the insured 1 MEDICARE CGS 1 [facility] [place] [address] [id number] OMER [place] Self - patient is the insured 1 Medical (General) History Medical History History ICD Code LEARNING DISABILITY DEPRESSION attempted suicide Jul 2013 Surgical History Surgery Date(Month/Year) removed skin lesion on right forearm EGD 01/2021 Hospitalization History Reason Date(Month/Year) Behavioral Health 10/2018
[2025-03-19 17:11] LABS: Alanine Aminotransferase 20 U/L (14-59); Albumin Globulin Ratio 0.7; Albumin Level 3.3 g/dL (3.4-5.0); Alkaline Phosphatase 88 U/L (46-116); Aspartate Amino Transferase 13 U/L (15-37); Cholesterol 187 mg/dL (<=200); Globulin 4.5 g/dL; Glucose 80 mg/dL (74-106); HDL Cholesterol 34 mg/dL (40-60); Total Protein 7.8 g/dL (6.4-8.2); Triglycerides 112 mg/dL (<=150); VLDL CHOLESTEROL 22.4 mg/dL
[2025-03-19 17:14] LABS: Hematocrit 37.6 % (36.0-48.0); Hemoglobin 12.3 g/dL (12.0-16.0); Immature Granulocytes Abs Auto 0.02 10^3/uL (0.00-0.03); Immature Granulocytes Pct Auto 0.2 % (0.0-0.5); Lymphocytes Absolute Auto 3.4 10^3/uL (1.2-3.8); Mean Corpuscular HGB Conc 32.7 g/dL (29.9-35.2); Mean Corpuscular Hemoglobin 29.9 pg (26.7-34.0); Mean Corpuscular Volume 91.3 fL (81.0-99.0); Platelet Count 364 10^3/uL (150-450); Red Blood Count 4.12 10^6/uL (4.20-5.40); White Blood Count 8.1 10^3/uL (4.0-11.0)
== END 2025-03-19 15:58 | disposition home or self-care (01) ==
LOC: LAB 15:57
PROVIDERS: Visit Provider Psychiatry & Neurology Psychiatry
DX: Z79.899 Other long term (current) drug therapy (principal); F25.9 Schizoaffective disorder, unspecified
CPT/HCPCS: 36415; 80061; 80076; 80164; 82947; 83036; 85025

== ENCOUNTER 2025-06-12 08:35 | Outpatient (OUT) | payer MEDICARE, SELFPAY ==
--- OUTSIDE RECORDS SUMMARY | 2024-07-12 07:00 | XMS_ITS ---
Author Organization [facility] Address [address] [place] [address] Care Team Providers Care Commercial Hvac Technician Name Role Phone Haja Doyle Primary Care Provider REASON FOR VISIT infection Social History Sex Assigned At : Social History Observation Description Sex Assigned At Female Encounters Encounter Location Date Provider Diagnosis [facility] [address] [place] [address] 07/12/2024 Haja Doyle Plan Of Treatment No Information Progress Notes * OMER LUIS DDOB:[birth year] (29 yo F)Acc No.[id number]:07/12/2024 PROGRESS NOTES Patient: OMER FLORENCE .3Appointment Provider:Radhika Doyle MDDOB:1995???Age: 28 Y???Sex:FemaleDate:4Phone:[phone]:[address] [facility] Subjective: * Chief Complaints: * I nfection * Electronic signature of Haja Doyle MD on 06/12/2025 at 08:41 AM EDTSign off status: Pending * Appointment Provider: Daly Doyle MD Date: 09/11/2023 Generated for Printing/Faxing/eTransmitting on:?06/12/2025 08:41 AM EDT
--- OUTSIDE RECORDS SUMMARY | 2024-10-12 06:00 | XMS_ITS ---
Author Organization [facility] Address [address] [facility] [place] [address] Care Team Providers Care Marketing Finance Specialist Name Role Phone Haja Doyle Primary Care Provider REASON FOR VISIT 4 week f/u Social History Sex Assigned At : Social History Observation Description Sex Assigned At Female Encounters Encounter Location Date Provider Diagnosis [facility] [address] [place] [address] 10/12/2024 Haja Doyle Plan Of Treatment No Information Progress Notes * OMER LUIS DDOB:[birth year] (29 yo F)Acc No.[id number]:10/12/2024 Progress Notes Patient: OMER FLORENCE .3Appointment Provider:?Haja Doyle MDDOB:1995???Age: 28 Y???Sex:FemaleDate:10/12/2024Phone:[phone]:[address] [facility] Subjective: * Chief Complaints: * 4 week f/u Billing Information: * Procedure Codes: * Electronic signature of Haja Doyle MD on 06/12/2025 at 08:40 AM EDTSign off status: Pending * Appointment Provider: Daly Doyle MD Date: 0 10/12/2024 Generated for Printing/Faxing/eTransmitting on:?06/12/2025 08:40 AM EDT
--- OUTSIDE RECORDS SUMMARY | 2024-11-14 09:15 | XMS_ITS ---
Author Organization [facility] Address [address] [place] [address] Care Team Providers Care Dip Unit Operator Name Role Phone Haja Doyle Primary Care Provider REASON FOR VISIT pap Social History Sex Assigned At : Social History Observation Description Sex Assigned At Female Encounters Encounter Location Date Provider Diagnosis [facility] [address] [place] [address] 11/14/2024 Haja Doyle Plan Of Treatment No Information Progress Notes * OMER LUIS DDOB:[birth year] (29 yo F)Acc No.[id number]:11/14/2024 Progress Notes Patient: OMER FLORENCE .3Appointment Provider:Radhika Doyle MDDOB:1995???Age: 29 Y???Sex:FemaleDate:11/14/2024Phone:[phone]:[address] [facility] Subjective: * Chief Complaints: * P ap * Electronic signature of Haja Doyle MD on 06/12/2025 at 08:40 AM EDTSign off status: Pending * Appointment Provider: Daly Doyle MD Date: 0 11/14/2024 Generated for Printing/Faxing/eTransmitting on:?06/12/2025 08:40 AM EDT
--- OUTSIDE RECORDS SUMMARY | 2024-11-16 05:30 | XMS_ITS ---
Author Organization [facility] Address [address] [facility] [place] [address] Care Team Providers Care Mold Loft Worker Name Role Phone Haja Doyle Primary Care Provider [phone] REASON FOR VISIT 4 WEEK F/U Social History Sex Assigned At : Social History Observation Description Sex Assigned At Female Encounters Encounter Location Date Provider Diagnosis [facility] [address] [place] [address] 11/16/2024 Haja Doyle Plan Of Treatment No Information Progress Notes * OMER LUIS DDOB:[birth year] (29 yo F)Acc No.[id number]:11/16/2024 Progress Notes Patient: OMER FLORENCE .3Appointment Provider:?Haja Doyle MDDOB:1995???Age: 29 Y???Sex:FemaleDate:11/16/2024Phone:[phone]:[address] [facility] Subjective: * Chief Complaints: * 4 WEEK F/U Billing Information: * Procedure Codes: * Electronic signature of Haja Doyle MD on 06/12/2025 at 08:42 AM EDTSign off status: Pending * Appointment Provider: Daly Doyle MD Date: 0 11/16/2024 Generated for Printing/Faxing/eTransmitting on:?06/12/2025 08:42 AM EDT
--- OUTSIDE RECORDS SUMMARY | 2024-11-23 06:45 | XMS_ITS ---
Author Organization [facility] Address [address] [place] [address] Care Team Providers Care Farm Planner Name Role Phone Haja Doyle Primary Care Provider [phone] REASON FOR VISIT PAP Social History Sex Assigned At : Social History Observation Description Sex Assigned At Female Encounters Encounter Location Date Provider Diagnosis [facility] [address] [place] [address] 11/23/2024 Haja Doyle Plan Of Treatment No Information Progress Notes * OMER LUIS DDOB:[birth year] (29 yo F)Acc No.[id number]:11/23/2024 Progress Notes Patient: OMER FLORENCE .3Appointment Provider:Radhika Doyle MDDOB:1995???Age: 29 Y???Sex:FemaleDate:11/23/2024Phone:[phone]:[address] [facility] Subjective: * Chief Complaints: * P AP * Electronic signature of Haja Doyle MD on 06/12/2025 at 08:41 AM EDTSign off status: Pending * Appointment Provider: Daly Doyle MD Date: 0 11/23/2024 Generated for Printing/Faxing/eTransmitting on:?06/12/2025 08:41 AM EDT
--- OUTSIDE RECORDS SUMMARY | 2024-12-13 09:15 | XMS_ITS ---
Author Organization [facility] Address [address] [place] [address] Care Team Providers Care Trim Machine Adjuster Name Role Phone Haja Doyle Primary Care Provider REASON FOR VISIT pap Social History Sex Assigned At : Social History Observation Description Sex Assigned At Female Encounters Encounter Location Date Provider Diagnosis [facility] [address] [place] [place] [address] 12/13/2024 Haja Doyle Plan Of Treatment No Information Progress Notes * OMER LUIS DDOB:[birth year] (29 yo F)Acc No.[id number]:12/13/2024 Progress Notes Patient: OMER FLORENCE .3Appointment Provider:Radhika Doyle MDDOB:1995???Age: 29 Y???Sex:FemaleDate:12/13/2024Phone:[phone]:[address] [facility] Subjective: * Chief Complaints: * P ap Billing Information: * Procedure Codes: * Electronic signature of Haja Doyle MD on 06/12/2025 at 08:40 AM EDTSign off status: Pending * Appointment Provider: Daly Doyle MD Date: 0 12/13/2024 Generated for Printing/Faxing/eTransmitting on:?06/12/2025 08:40 AM EDT
--- OUTSIDE RECORDS SUMMARY | 2025-02-21 09:00 | XMS_ITS ---
Author Organization [facility] Address [address] [facility] [place] [address] Care Team Providers Care Potato Chip Maker Name Role Phone Haja Doyle Primary Care Provider Social History Sex Assigned At : Social History Observation Description Sex Assigned At Female Encounters Encounter Location Date Provider Diagnosis [facility] [address] [place] [address] 02/21/2025 Haja Doyle Plan Of Treatment No Information Progress Notes * OMER [place] DDOB:[birth year] (29 yo F)Acc No.[id number]:02/21/2025 Progress Notes Patient: OMER FLORENCE .3Appointment Provider:?Haja Doyle MDDOB:1995???Age: 29 Y???Sex:FemaleDate:02/21/2025Phone:[phone]:[address] [facility] Billing Information: * Procedure Codes: * Electronic signature of Haja Doyle MD on 06/12/2025 at 08:40 AM EDTSign off status: Pending * Appointment Provider: Daly Doyle MD Date: 0 02/21/2025 Generated for Printing/Faxing/eTransmitting on:?06/12/2025 08:40 AM EDT
--- OUTSIDE RECORDS SUMMARY | 2025-04-17 11:45 | XMS_ITS ---
Author Organization [facility] Address [address] [place] [address] Care Team Providers Care Owner Operator Name Role Phone Haja Doyle Primary Care Provider REASON FOR VISIT acid reflux Social History Sex Assigned At : Social History Observation Description Sex Assigned At Female Encounters Encounter Location Date Provider Diagnosis [facility] [address] [place] [address] 04/17/2025 Haja Doyle Plan Of Treatment No Information Progress Notes * OMER [place] DDOB:[birth year] (29 yo F)Acc No.[id number]:04/17/2025 Progress Notes Patient: OMER FLORENCE .3Appointment Provider:ALEXSANDER SorianoOB:1995???Age: 29 Y???Sex:FemaleDate:04/17/2025Phone:[phone]:[address] [facility] Subjective: * Chief Complaints: * A sudheer reflux * Electronic signature of Haja Doyle MD on 06/12/2025 at 08:41 AM EDTSign off status: Pending * Appointment Provider: Daly Doyle MD Date: 0 04/17/2025 Generated for Printing/Faxing/eTransmitting on:?06/12/2025 08:41 AM EDT
--- OUTSIDE RECORDS SUMMARY | 2025-06-12 08:42 | XMS_ITS | Patient Health Record ---
Author Organization [facility] es Address [address] [place] [address] Care Team Providers Care Oracle Programmer Name Role Phone Haja Doyle Primary Care Provider Urban Crouch Unavailable [phone] Connie Mesa Unavailable [phone] Allergies No Known Allergies Results Component Value Reference Range Notes Chlamydia/GC/Trich HAYLEY Reviewed date:04/23/2025 08:55:00 AM Interpretation: Performing Lab:, [facility], [address] [place] Notes/Report: Chlamydia Trachomotis, HAYLEY Negative Negative Neisseria Gonorrhoeae, NAANegativeNegativeTrichomonas NAANegativeNegative Performed at: =[address] [id number] Racing Car Driver: Cynthia Granda MD, Phone: [phone] Reason For Referral Reason SCHEDULED 10/16/24 Hypersomnia, BMI 59, mouth breathing, smoker Diagnosis 1 Hypersomnia (G47.10) Referral Organization [facility] ices Referring Provider First Name Urban Referring Provider Last Name Willa Referring Provider Speciality Family Pra ctice Referred Provider [facility], . Referred Provider Specialty Sleep Medici ne Referral Priority Routine Medications Medication SIG (Take, Route, Frequency, Duration) Notes Start Date End Date Status Haloperidol 10 MG Tablet 2 tablets Orally twice daily *SPROUT ActiveDepakote 500 MG Tablet Delayed Release1 tablet Orally Twice a day w/250 mg tab to = 750mg*SPROUTActivetraZODone HCl 100 MG Tablet1 tablet at bedtime Orally @ HS w/100 mg tab.*SPROUTActiveZyPREXA 15 MG Tablet1 tablet Orally Once a day @HS; Duration: 30 days*LDKCEH6712/02/2018ActiveAlbuterol Sulfate HFA 108 (90 Base) MCG/ACT Aerosol Solution1 puff as needed Inhalation every 4 hrs; Duration: 30 daysActiveMiraLax 17 GM/SCOOP Powder1 scoop mixed with 8 ounces of fluid Orally Once a dayUnknownWegovy 0.25 MG/0.5ML Solution Auto-injectorINJECT 0.5 ML SUBCUTANEOUSLY ONE TIME PER WEEK; Duration: 28UnknownAmoxicillin 875 MG Tablet1 tablet Orally Twice a dayActiveNaproxen 500 MG Tablet1 tablet with food or milk as needed Orally every 12 hrsActivePantoprazole Sodium 40 MG Tablet Delayed Release1 tablet Orally Once a dayActiveBenztropine Mesylate 1 MG Tablet1 tablet in the a.m. 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 Check all that applyI do not have problems meeting my needsHas lack of transportation kept you from medical appointments, meetings, work or from getting things needed for daily living?NoHow often do you see or talk to people that you care about and feel close to? (For example: talkingto friends on the phone, visiting friends or family, going to anabaptism or club meetings)1 or 2 times a weekHow stressed are you? Stress is when someone feels tense, nervous, anxious, or cant sleep at night because their mind is troubledA little bitIn the past year have you spent more than 2 nights in a row in a assisted, alf, jail center, orjuvenile correctional facility?NoAre you a refugee?NoWhat country are you from?[place]Do you feel physically and emotionally safe where you currently live?YesIn the past year, have you been afraid of your partner or ex-partner?NoPRAPARE Score:4GeneralSocial InfoQuestionAnswerNotesTransition of Care:ER/UC/hospital since last office visit?Yes, report on fileSpecialist seen since last office visit?NoSubstance abuse/mental health issues of patient/familyPatient -Other Marijuana- helps with body ache painFamily Member -DeniesAbility to understand healthcare/treatmentPatient:AnthonyTorae Screen:Are you a:current smoker? How often do you smoke cigarettes?some days, but not every day? How many cigarettes a day do you smoke?5 or lessSexual Hx:Had sex in the last 12 months (vaginal, oral, or anal)?Yes? withBoth Men and Women? Use protection?Yes?? How often?Most of the time? Prevention Strategies discussed:CondomsHave you ever had an STD?Yes ? Other?YesLMP:09/15/2022Social/Support Concerns:Patient:NoAlcohol Screening:Did you have a drink containing alcohol in the past year?Yes? How often did you have a drink containing alcohol in the past year?Monthly or less (1 point)? How many drinks did you have on a typical day when you were drinking in the past year?1 or 2 (0 points)? How often did you have six or more drinks on one occasion in the past year?Never (0 points)Qoprba0YlgnspemcopjiwOsyqawwwAumqakohj affecting healthPoor/Risky Behaviors:Denies-Communication Barrier:Language Barrier?:No Sexual HistorySocial InfoQuestionAnswerNotesSexual HistoryWhat is your anatomy? VaginaWhat is your gender identity?FemaleHave you ever had sexual activity in the past (including vaginal, anal, or oral) ?Yes? How many sexual partners have you had in the past 12 months?Multiple (more than one)2? What is the anatomy of your partner(s)? Check all that apply.Vagina, Penis? What kind of sexual contact do you have, or have you had? Check all that apply.Penile-Vaginal? Do you use condoms?Yes?? How often do you use condoms?Sometimes?? For which activities? Vaginal? My current form of contraception is (check all that apply)Condoms? Do you feel safe with your partner(s)?No Female no Male yes ? Do you, or have you ever had sex for money or trade?NoDo you use sex toys?Yes? Do you ever share sex toys?NoDo you currently have any signs of an STD/STI (i.e. genital sores, warts, rash, itching, discharge,etc.)?YesHave you ever tested positive for an STD in the past?Yes? if yes, which one(s)?Trichomonas? If yes, were you ever treated?YesDo any of your current partners have any signs of, or a diagnosis of an STD/STI?NoHave you ever been tested for HIV?Yes? What were the results?NegativeHave you had the HPV vaccination (Gardasil)?NoHave you ever used a needle to inject drugs?NoHave you ever been a victim of interpersonal violence or sexual assault? (answer will remain CONFIDENTIAL)NoDo you have any questions or anything else you would like to tell us today?NoFood Insecurity Screening Social InfoQuestionAnswerNotesFood Insecurity ScreeningWithin the last 12 months, have you been worried about your food running out before you received money to buy more?NoWithin the last 12 months, did the food you buy not last, and you didn't have money to buy more?NoDrug/Alcohol:Social InfoQuestionAnswer NotesAUDIT-C (Standard)Did you have a drink containing alcohol in the past year? Yes? How often did you have a drink containing alcohol in the past year?Monthly or less (1 point)? How many drinks did you have on a typical day when you were drinking in the past year?1 or 2 drinks (0 point)? How often did you have six or more drinks on one occasion in the past year?Less than monthly (1 point)Points2 InterpretationNegativeTobacco Use:Social InfoQuestionAnswerNotesTobacco Control (Standard)Tobacco use:Current smoker? How often do you smoke cigarettes?Every day? How many cigarettes a day do you smoke?5 or lessAdditional Findings: Tobacco userCigar smokerSection Notes: No alcohol or other drug use [...] drinking wine No alcohol or other drug use No alcohol or other drug use No alcohol or other drug use Problems Problem Type SNOMED Code ICD Code Onset Dates Problem Status W/U Status Risk Notes Problem Hypocalcemia (9447088) Hypocalcemia (E83. 51) ActiveconfirmedProblemTobacco user (069674914)Nicotine dependence, unspecified, uncomplicated (F17.200)ActiveconfirmedProblemSchizoaffective disorder, bipolar type (96562084)Schizoaffective Disorder, Bipolar type (F25.0)Activeconfirmed ProblemMouth breathing (34285826)Mouth breathing (R06.5)ActiveconfirmedProblem Somnolence (43427708)Somnolence (R40.0)ActiveconfirmedProblemEssential hypertension (86392950)Essential hypertension (I10)ActiveconfirmedProblemMorbid obesity (429131361)Morbid obesity (E66.01)ActiveconfirmedProblemHypersomnia (11673861)Hypersomnia (G47.10)ActiveconfirmedProblemBody mass index 40+ - severely obese (476474941)Body mass index (BMI) 45.0-49.9, adult (Z68.42)Active confirmedProblemPolycystic ovary syndrome (disorder) (022132800)PCOS (polycystic ovarian syndrome) (E28.2)ActiveconfirmedProblemConstipation (94539567) Constipation, unspecified constipation type (K59.00)ActiveconfirmedProblemHigh risk sexual behavior (813467030)Unprotected sex (Z72.51)ActiveconfirmedProblem Chronic fatigue syndrome (05833950)Chronic fatigue (R53.82)Activeconfirmed ProblemInsomnia (943464539)Insomnia, unspecified type (G47.00)Activeconfirmed ProblemBody mass index 40+ - severely obese (878032231)BMI 50.0-59.9, adult (Z68.43)ActiveconfirmedProblemhypercholesterolemia (disorder) (48433178) Hypercholesteremia (E78.00)ActiveconfirmedProblemPure hypercholesterolemia (190544571)Elevated LDL cholesterol level (E78.00)ActiveconfirmedProblemMajor depression, single episode (60375237)Major depressive disorder, remission status unspecified, unspecified whether recurrent (F32.9)ActiveconfirmedProblemInsulin resistance (728473827)Insulin resistance (E88.81)ActiveconfirmedProblemCigarette smoker (56686673)Cigarette smoker (F17.210)Activeconfirmed Vital Signs Heart Rate 78 /min 04/09/2025 Xcwfzyihsqj66.5 degrees Eumfmikfra04/19/2025Respiratory Rate22 /min04/09/2025 Nvvxumpo67 %04/09/2025lood pressure puosfiykj56 mm Hg04/09/20252548Qksnot65 in 04/09/2025lood pressure wpqqhmta961 mm Hg04/09/20259461Uxusrd170.6 lbs04/09/2025MI 59.81 kg/m204/09/2025 Encounters Encounter Location Date Provider Diagnosis [facility] [address] [place] [address] 09/05/2024 Haja Doyle [address] [address] [place] [address]/Frank [facility] [address] [place] [address]/Frank [facility] [place] [address] 04/09/2025Natalija TylerPossible exposure to STI Z20.2FIn[facility] [address] [place] [address]/Mark KhalilCigarette smoker F17.210 ; Hypersomnia G47.10 ; BMI 50.0-59.9, adult Z68.43 ; Mouth breathing R06.5; Chronic fatigue R53.82 and Morbid obesity E66.01 Assessments Encounter Date Diagnosis (ICD Code) Assessment Notes Treatment Notes Treatment Clinical Notes Section Notes 09/13/2024 Hypersomnia (ICD-10 - G47.10) 09/13/2024igarette smoker (ICD-10 - F17.210)04/09/2025Possible exposure to STI (ICD-10 - Z20.2)Patient is sexually active and presents for STI screening for high-risk sexual behavior. Patient declined blood tests, including HIV, syphillis, and Hep B or Hep C screening. Chlamydia, gonorrhea, and trichomonas testing was done via provider-performed vaginal swab.09/13/2024MI 50.0-59.9, adult (ICD-10 - Z68.43)09/13/2024Mouth breathing (ICD-10 - R06.5)09/13/2024 Chronic fatigue (ICD-10 - R53.82)09/13/2024Morbid obesity (ICD-10 - E66.01) 09/13/2024OtherLearning About Benefits of Quitting Smoking material was [...] cigarettes 1 pack a week has patches andgum at home. Noncompliant. Patient educated. Red oral cavity is from undissolved truong-aid powder. BMI 59. All risk factors/Signs/Syx present for VIK, no history sleep study. Brain fog/dizziness likely to improve once allocated for CPAP which is likely. Resume follow up with PCP. 04/09/2025OtherBody Mass Index: Care Instructions material was published, Body Mass Index: Care Instructions material was published Plan Of Treatment No Information Insurance Providers Payer Name Payer Address Payer Phone Subscriber Number Group Number Insured Name Patient Relationship to Insured Coverage Start Date Coverage End Date [employer] MDCR GOLD PLUS HMO [address] [address] [place] [address] [id number] Tyson LUIS - patient is the [id number] 2023MEDICAID SEC TO MCARE ADV[address] [place] [id number], KHADIJAHSelf - patient is the [id number] [address] [id number], KHADIJAHSelf - patient is the insured 2021 Medical (General) History Medical History History ICD Code LEARNING DISABILITY DEPRESSIONattempted suicide Jul 2013Surgical History Surgery Date(Month/Year) removed skin lesion on right forearm EGD01/2021Hospitalization History Reason Date(Month/Year) Behavioral Health 10/2018
[2025-06-12 09:10] LABS: Hematocrit 39.8 % (36.0-48.0); Hemoglobin 12.9 g/dL (12.0-16.0); Immature Granulocytes Abs Auto 0.03 10^3/uL (0.00-0.03); Immature Granulocytes Pct Auto 0.4 % (0.0-0.5); Lymphocytes Absolute Auto 3.3 10^3/uL (1.2-3.8); Mean Corpuscular HGB Conc 32.4 g/dL (29.9-35.2); Mean Corpuscular Hemoglobin 29.2 pg (26.7-34.0); Mean Corpuscular Volume 90.0 fL (81.0-99.0); Platelet Count 383 10^3/uL (150-450); Red Blood Count 4.42 10^6/uL (4.20-5.40); White Blood Count 8.6 10^3/uL (4.0-11.0)
[2025-06-12 09:32] LABS: Alanine Aminotransferase 16 U/L (14-59); Albumin Globulin Ratio 0.7; Albumin Level 3.3 g/dL (3.4-5.0); Alkaline Phosphatase 91 U/L (46-116); Aspartate Amino Transferase 8 U/L (15-37); Cholesterol 210 mg/dL (<=200); Globulin 4.5 g/dL; Glucose 94 mg/dL (74-106); HDL Cholesterol 35 mg/dL (40-60); Total Protein 7.8 g/dL (6.4-8.2); Triglycerides 111 mg/dL (<=150); VLDL CHOLESTEROL 22.2 mg/dL
== END 2025-06-12 08:36 | disposition home or self-care (01) ==
LOC: LAB 08:37
PROVIDERS: Visit Provider Psychiatry & Neurology Psychiatry
DX: F25.9 Schizoaffective disorder, unspecified (principal); Z79.899 Other long term (current) drug therapy
CPT/HCPCS: 36415; 80061; 80076; 80164; 82947; 83036; 85025

== ENCOUNTER 2025-07-25 19:36 | Emergency (ER) | payer MEDICARE, SELFPAY ==
--- OUTSIDE RECORDS SUMMARY | 2024-07-12 06:00 | XMS_ITS ---
Author Organization [facility] Address [address] [place] [address] Care Team Providers Care Public Health Worker Name Role Phone Haja Doyle Primary Care Provider REASON FOR VISIT infection Social History Sex Assigned At : Social History Observation Description Sex Assigned At Female Encounters Encounter Location Date Provider Diagnosis [facility] [address] [place] [address] 07/12/2024 Haja Doyle Plan Of Treatment No Information Progress Notes * OMER LUIS DDOB:[birth year] (29 yo F)Acc No.[id number]:07/12/2024 PROGRESS NOTES Patient: OMER FLORENCE .3Appointment Provider:Radhika Doyle MDDOB:1995???Age: 28 Y???Sex:FemaleDate:4Phone:[phone]:[address] [facility] Subjective: * Chief Complaints: * I nfection * Electronic signature of Haja Doyle MD on 07/25/2025 at 08:17 PM ESTSign off status: Pending * Appointment Provider: Daly Doyle MD Date: 09/11/2023 Generated for Printing/Faxing/eTransmitting on:?07/25/2025 08:17 PM EST
--- OUTSIDE RECORDS SUMMARY | 2024-10-12 05:00 | XMS_ITS ---
Author Organization [facility] Address [address] [facility] [place] [address] Care Team Providers Care Chief Underwriter Name Role Phone Haja Doyle Primary Care Provider REASON FOR VISIT 4 week f/u Social History Sex Assigned At : Social History Observation Description Sex Assigned At Female Encounters Encounter Location Date Provider Diagnosis [facility] [address] [place] [address] 10/12/2024 Haja Doyle Plan Of Treatment No Information Progress Notes * OMER LUIS DDOB:[birth year] (29 yo F)Acc No.[id number]:10/12/2024 Progress Notes Patient: OMER FLORENCE .3Appointment Provider:?Haja Doyle MDDOB:1995???Age: 28 Y???Sex:FemaleDate:10/12/2024Phone:[phone]:[address] [facility] Subjective: * Chief Complaints: * 4 week f/u Billing Information: * Procedure Codes: * Electronic signature of Haja Doyle MD on 07/25/2025 at 08:17 PM ESTSign off status: Pending * Appointment Provider: Daly Doyle MD Date: 0 10/12/2024 Generated for Printing/Faxing/eTransmitting on:?07/25/2025 08:17 PM EST
--- OUTSIDE RECORDS SUMMARY | 2024-10-12 08:59 | XMS_ITS | Continuity of Care Document ---
Author Organization [facility] Address [address] [place] [address] Phone Care Team Providers Care Wrap Knitting Machine Operator Name Role Phone Mykelquinton MARY JANEFarida Unavailable [...] Limited Oral Eval ROUTINE VENIPUNCTURE OFFICE/OUTPATIENT VISIT, [facility] URINE TEST Obtaining screen pap smear CA screen;pelvic/breast exam OFFICE/OUTPATIENT VISIT, [facility] URINE TEST PREV VISIT, EST, AGE 18-39 [...] AGE 18-39 [facility] SPECIMEN HANDLING (GC/CHLAMYDIA) December [facility] FP MEDICAID [facility] FP MEDICAID [facility] MEDICAID OFFICE/OUTPATIENT VISIT, EST [facility] MEDICAID URINE TEST Medroxyprogesterone Acetate 104 mg [...] Diagnoses Date Provider Providers Copied on Encounter [facility], [address] [place] [address], [id number] , [place] tel: [phone] [facility] Dental limited (chief complaint) Encounter for screening for dental disorders 5 Cande Iqbal. . [phone] OFFICE/OUTPA TIENT VISIT, [facility], [address] [place] [address], [id number] , [place] tel: [phone] [facility] annual exam (chief complaint) Encounter for gynecological examination (general) (routine) without abnormal findingsBody mass index [BMI] 60.0-69.9, adultEncounter for screening for HIVEncounter for STD screeningOther problem related to lifestyleEncou nter for repeat prescription for BCPEncounter for test, result negative 1 Alexandru Thorpe. [address] [place] [address], [id number], [place]. [phone] OFFICE/OUTPA TIENT VISIT, [facility], [address] [place] [address], [id number] , [place] tel: [phone] DANIEL [facility] care (chief complaint) Left upper quadrant abdominal painConstipati on, unspecified constipation typeBody mass index (BMI) 40.0-44.9, adultBody mass index [BMI] 60.0-69.9, adult Nov- 1 Lokesh DURANP Janet. [address] [place] [address], [id number], [place]. tel:[phone] PREV VISIT, EST, AGE 18-39 [facility], [address] [place], [place], [id number] , [place] tel: [phone] [facility] annual exam (chief complaint) Encntr for police and fire dispatcher exam (general) (routine) w/o abn findingsEncoun ter for screening for HIVEncounter for test, result negativeOther problem related to lifestyleEncou nter for STD screeningEncou nter for repeat prescription for BCPBody mass index (BMI) 40.0-44.9, adult 8 [facility] Ila. [address] [place] [address], [id number], [place]. tel:[phone] [facility], [address] [place] [address], [id number] , [place] tel: [phone] [facility] Colpo (chief complaint) Encounter for test, result negativeLGSIL on cytologic smear of cervix 7 Jeremyi DO Ankit. [address] [place] [address], [id number], [place]. tel:[phone] OFFICE/OUTPA TIENT VISIT, EST [facility], [address] [place] [address], [id number] , [place] tel: [phone] [facility] contraception (chief complaint) Encounter for repeat prescription for BCPLGSIL on pap smear of cervix 6 [facility] Ila. [address] [place] [address], [id number], [place]. tel:[phone] Referring Provider: Ila Horvath [facility] Soledad, [address] [place] [address], [id number] . tel:[phone] PREV VISIT, EST, AGE 18-39 [facility], [address] [place] [address], [id number] , [place] tel:[phone] [facility] annual exam (chief complaint)cont raception (chief complaint)abno rmal pap smear (chief complaint) Encounter for general police and fire dispatcher exam without abnormal findingEncount er for repeat prescription for BCPEncounter for STD screeningOther problem related to lifestyleEncou nter for test, result negativeTricho monal vulvovaginitis Chlamydial infectionASCUS on pap smear of cervix 6 Alexandru [facility] Ila. [address] [place], [place], [id number], [place]. tel:[phone] OFFICE/OUTPA TIENT VISIT, EST [facility], [address] [place], [place], [id number] , [place] tel: [phone] [facility] screening (chief complaint) Encounter for screening for HIVEncntr screen for infections w sexl mode of transmissOther problems related to lifestyle 6 Kalina Vuong. [address] [place], [place], [id number], [place]. tel:[phone] PREV VISIT, EST, AGE 18-39 [facility], [address] [place] [address], [id number] , [place] tel: [phone] [facility] Update (chief complaint)stan al exam (chief complaint)cont raception (chief complaint) ROUTINE BARN HAND EXAMINATIONOth er specified contraceptive management 5 [facility] Ial. [address] [place] [address], [id number], [place]. [phone] PREV VISIT, EST, AGE 18-39 [facility], [address] [place] [address], [id number] , [place] tel: [phone] [facility] annual visit (chief complaint) Gynecological ExaminationOth er specified contraceptive management 4 [facility] Ila. [address] [place] [address], [id number], [place]. tel:[phone] [facility], [address] [place] [address], [id number] , [place] tel:[phone] [facility] No Information 2 Sarath Guzmán. [address] [place] [address], [id number], [place]. [phone] [facility], [address] [place], [place], [id number] , [place] tel: [phone] [facility] No Information 1 Sarath Guzmán. [address] [place], [place], [id number], [place]. tel:[phone] OFFICE/OUTPA TIENT VISIT, [facility], [address] [place], [place], [id number] , [place] tel: [phone] [facility] No Information 0 Sarath Guzmán. [address] [place], [place], [id number], [place]. tel:[phone] [facility], [address] [place], [place], [id number] , [place] tel: [phone] [facility] No Information 0 Donnellwherrol ROJO Tiffany. [address] [place], [place], [id number]. tel:[phone] OFFICE/OUTPA TIENT VISIT, [facility], [address] [place], [place], [id number] , [place] tel: [phone] [facility] No Information 0 Visci DO Ankit. [address] [place], [place], [id number], [place]. tel:[phone] OFFICE/OUTPA TIENT VISIT, [facility], [address] [place], [place], [id number] , [place] tel: [phone] [facility] No Information 9 Mawhirbelen DAIRY TESTER Tiffany. [address] [place], [place], [id number]. tel:[phone] PREV VISIT, [facility], AGE 12-17 [facility], [address] [place], [place], [id number] , [place] tel: [phone] [facility] No Information 9 No Information OFFICE/OUTPA TIENT VISIT, [facility], [address] [facility] [place], [place], [id number] , [place] tel:[phone] [facility] No Information Sep-0 4200 8 [...] well Payers Payer name Insurance type Covered libertarian ID Bri scottjoslyn(s) Allyson [employer] 17 [id number] D Medicaid [facility] [id number] Social History Type Description Quantity Date Captured [...] (related to Left upper quadrant abdominal pain) [id number] Ordered: Referrals: Gastroenterology ordered History Of Present [...] eliot. Pt states she was recently in [facility] d/t L upper and lower abdomen pain, [...] or concerns. Cathy, RNNoted above. Records from [facility] were obtained and went over labs with patient. Patient states that her pain is better after she has a bowel movement. She was on Colace in the past and would like to try it again. RX sent to pharmacy. Referral to GI was also put in. Advised to call the office if symptoms worsen. Kerry CONTROLS DESIGNER-DAIRY TESTER annual exam Currently pregna nt: no. Patient [...] Patient is here for annual exam. Denies BARN HAND problems, but would like to go back [...] weeks ago, but didn't have ride to pick pack worker pills. Patient is planning on having her sisiter take her to pick pack worker pills today. Rescheduled for colposcopy on 10/01/2016. [...] results Related to Encounter for STD screening Dietary management e ducation, guidance, and counseling [...] if desires results. 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 Related to Encounter for general police and fire dispatcher exam without abnormal finding Encouraged to start [...] given to patient today Related to ROUTINE BARN HAND EXAMINATION Assessments Type Assessment Date No Information Patient Care Teams Name Effective Dates (start - stop) Status Members No Information
--- OUTSIDE RECORDS SUMMARY | 2024-11-14 08:15 | XMS_ITS ---
Author Organization [facility] Address [address] [place] [address] Care Team Providers Care Staple Cutter Name Role Phone Haja Doyle Primary Care Provider REASON FOR VISIT pap Social History Sex Assigned At : Social History Observation Description Sex Assigned At Female Encounters Encounter Location Date Provider Diagnosis [facility] [address] [place] [address] 11/14/2024 Haja Doyle Plan Of Treatment No Information Progress Notes * OMER LUIS DDOB:[birth year] (29 yo F)Acc No.[id number]:11/14/2024 Progress Notes Patient: OMER FLORENCE .3Appointment Provider:Radhika Doyle MDDOB:1995???Age: 29 Y???Sex:FemaleDate:11/14/2024Phone:[phone]:[address] [place], [place] Subjective: * Chief Complaints: * P ap * Electronic signature of Haja Doyle MD on 07/25/2025 at 08:16 PM ESTSign off status: Pending * Appointment Provider: Daly Doyle MD Date: 0 11/14/2024 Generated for Printing/Faxing/eTransmitting on:?07/25/2025 08:16 PM EST
--- OUTSIDE RECORDS SUMMARY | 2024-11-16 04:30 | XMS_ITS ---
Author Organization [facility] Address [address] [facility] [place] [address] Care Team Providers Care Boathouse Keeper Name Role Phone Haja Doyle Primary Care Provider [phone] REASON FOR VISIT 4 WEEK F/U Social History Sex Assigned At : Social History Observation Description Sex Assigned At Female Encounters Encounter Location Date Provider Diagnosis [facility] [address] [place] [address] 11/16/2024 Haja Doyle Plan Of Treatment No Information Progress Notes * OMER LUIS DDOB:[birth year] (29 yo F)Acc No.[id number]:11/16/2024 Progress Notes Patient: OMER FLORENCE .3Appointment Provider:?Haja Doyle MDDOB:1995???Age: 29 Y???Sex:FemaleDate:11/16/2024Phone:[phone]:[address] [facility] Subjective: * Chief Complaints: * 4 WEEK F/U Billing Information: * Procedure Codes: * Electronic signature of Haja Doyle MD on 07/25/2025 at 08:19 PM ESTSign off status: Pending * Appointment Provider: Daly Doyle MD Date: 0 11/16/2024 Generated for Printing/Faxing/eTransmitting on:?07/25/2025 08:19 PM EST
--- OUTSIDE RECORDS SUMMARY | 2024-11-23 05:45 | XMS_ITS ---
Author Organization [facility] Address [address] [place] [address] Care Team Providers Care Home Economist Name Role Phone Haja Doyle Primary Care Provider [phone] REASON FOR VISIT PAP Social History Sex Assigned At : Social History Observation Description Sex Assigned At Female Encounters Encounter Location Date Provider Diagnosis [facility] [address] [place] [address] 11/23/2024 Haja Doyle Plan Of Treatment No Information Progress Notes * OMER LUIS DDOB:[birth year] (29 yo F)Acc No.[id number]:11/23/2024 Progress Notes Patient: OMER FLORENCE .3Appointment Provider:Radhika Doyle MDDOB:1995???Age: 29 Y???Sex:FemaleDate:11/23/2024Phone:[phone]:[address] [facility] Subjective: * Chief Complaints: * P AP * Electronic signature of Haja Doyle MD on 07/25/2025 at 08:18 PM ESTSign off status: Pending * Appointment Provider: Daly Doyle MD Date: 0 11/23/2024 Generated for Printing/Faxing/eTransmitting on:?07/25/2025 08:18 PM EST
--- OUTSIDE RECORDS SUMMARY | 2024-12-13 08:15 | XMS_ITS ---
Author Organization [facility] Address [address] [place] [address] Care Team Providers Care Game Programer Name Role Phone Haja Doyle Primary Care Provider REASON FOR VISIT pap Social History Sex Assigned At : Social History Observation Description Sex Assigned At Female Encounters Encounter Location Date Provider Diagnosis [facility] [address] [place] [address] 12/13/2024 Haja Doyle Plan Of Treatment No Information Progress Notes * OMER LUIS DDOB:[birth year] (29 yo F)Acc No.[id number]:12/13/2024 Progress Notes Patient: OMER FLORENCE .3Appointment Provider:Radhika Doyle MDDOB:1995???Age: 29 Y???Sex:FemaleDate:12/13/2024Phone:[phone]:[address] [facility] Subjective: * Chief Complaints: * P ap Billing Information: * Procedure Codes: * Electronic signature of Haja Doyle MD on 07/25/2025 at 08:17 PM ESTSign off status: Pending * Appointment Provider: Daly Doyle MD Date: 0 12/13/2024 Generated for Printing/Faxing/eTransmitting on:?07/25/2025 08:17 PM EST
--- OUTSIDE RECORDS SUMMARY | 2025-02-21 08:00 | XMS_ITS ---
Author Organization [facility] Address [address] [facility] [place] [place] [address] Care Team Providers Care Footwear Sales Representative Name Role Phone Haja Doyle Primary Care Provider Social History Sex Assigned At : Social History Observation Description Sex Assigned At Female Encounters Encounter Location Date Provider Diagnosis [facility] [address] [place] [address] 02/21/2025 Haja Doyle Plan Of Treatment No Information Progress Notes * OMER [place] DDOB:[birth year] (29 yo F)Acc No.[id number]:02/21/2025 Progress Notes Patient: OMER FLORENCE .3Appointment Provider:?Haja Doyle MDDOB:1995???Age: 29 Y???Sex:FemaleDate:02/21/2025Phone:[phone]:[address] [facility] Billing Information: * Procedure Codes: * Electronic signature of Haja Doyle MD on 07/25/2025 at 08:17 PM ESTSign off status: Pending * Appointment Provider: Daly Doyle MD Date: 0 02/21/2025 Generated for Printing/Faxing/eTransmitting on:?07/25/2025 08:17 PM EST
--- OUTSIDE RECORDS SUMMARY | 2025-04-17 10:45 | XMS_ITS ---
Author Organization [facility] Address [address] [place] [address] Care Team Providers Care Military Science Teacher Name Role Phone Haja Doyle Primary Care Provider REASON FOR VISIT acid reflux Social History Sex Assigned At : Social History Observation Description Sex Assigned At Female Encounters Encounter Location Date Provider Diagnosis [facility] [address] [place] [address] 04/17/2025 Haja Doyle Plan Of Treatment No Information Progress Notes * OMER [place] DDOB:[birth year] (29 yo F)Acc No.[id number]:04/17/2025 Progress Notes Patient: OMER FLORENCE .3Appointment Provider:Radhika Doyle MDDOB:1995???Age: 29 Y???Sex:FemaleDate:04/17/2025Phone:[phone]:[address] [facility] Subjective: * Chief Complaints: * A sudheer reflux * Electronic signature of Haja Doyle MD on 07/25/2025 at 08:18 PM ESTSign off status: Pending * Appointment Provider: Daly Doyle MD Date: 0 04/17/2025 Generated for Printing/Faxing/eTransmitting on:?07/25/2025 08:18 PM EST
[2025-07-25] VITALS (13 sets, daily range): BP systolic 176; BP diastolic 99; PULSE 83–108; TEMP 37; O2SAT 96–100; BMI 57.5
--- NOTE | 2025-07-25 20:01 | ECG_ITS ---
The [facility] Test Date: 2025-07-25 Pat Name: OMER LUIS Department: Room: - Gender: Female Merchandise Presentation Manager: : 1995 Requested By: 2256 Order Number: [id number] Reading MD: JOLIE UNDERWOOD M.D. Measurements Intervals Gamaliel Rate: 102 P: 56 FL: 122 QRS: 92 QRSD: 82 T: -55 QT: 318 QTc: 377 Interpretive Statements 1120 Sinus tachycardia [address] depression 4364 Twave abnormality, possible anterolateral ischemia 4664 Twave abnormality, possible inferior ischemia 7102 Moderate right axis deviation 0104 ELECTRODE(S) DETACHED ... Repeat ECG is requested 9150 abnormal ECG Compared to ECG 02/07/2025 12:52:22 ST (T wave) deviation now present Possible ischemia now present Right-axis deviation now present Sinus rhythm no longer present Electronically Signed On 07-25-2025 20:53:00 EST by JOLIE UNDERWOOD M.D.
--- NOTE | 2025-07-25 20:13 | XR_ITS ---
The [address] [address] Patient Name: OMER LUIS MRN: [id number] date: 1995 Sex: F Assigned Patient Location: ED.MAIN Current Patient Location: ED.MAIN Accession/Order Number: [id number] Exam Date: 07/25/2025 20:48 Report Date: 07/25/2025 22:13 At the request of: JAH YODER Procedure: XR chest 1V PA CHEST: CLINICAL HISTORY: Chest pain, SOB COMPARISON: None Unremarkable cardiomediastinal silhouette. Lungs are clear. No effusion or pneumothorax. XR/XR chest 1V IMPRESSION: NEGATIVE FOR ACUTE PLEURAL-PARENCHYMAL DISEASE. Impression dictated by: Micah Myers M.D. 07/25/2025 10:13 PM Dictation Location: [place] [address] Electronically authenticated by: [id number] Y Date: 07/25/2025 22:13
--- OUTSIDE RECORDS SUMMARY | 2025-07-25 20:20 | XMS_ITS | Patient Health Record ---
Author Organization [facility] es Address [address] [place] [address] Care Team Providers Care Gaming Floor Supervisor Name Role Phone Haja Doyle Primary Care Provider Urban Crouch Unavailable [phone] Connie Mesa Unavailable [phone] Allergies No Known Allergies Results Component Value Reference Range Notes Chlamydia/GC/Trich HAYLEY Reviewed date:04/23/2025 08:55:00 AM Interpretation: Performing Lab:, [facility], [address] [place] Notes/Report: Chlamydia Trachomotis, HAYLEY Negative Negative Neisseria Gonorrhoeae, NAANegativeNegativeTrichomonas NAANegativeNegative Performed at: =[address] [id number] Injection Molding Supervisor: Cynthia Granda MD, Phone: [phone] Reason For Referral Reason SCHEDULED 10/16/24 Hypersomnia, BMI 59, mouth breathing, smoker Diagnosis 1 Hypersomnia (G47.10) Referral Organization [facility] ices Referring Provider First Name Urban Referring Provider Last Name Willa Referring Provider Speciality Family Pra ctice Referred Provider [facility], . 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 Stress is when someone feels tense, nervous, anxious, or cant sleep at night because their mind is troubledA little bitIn the past year have you spent more than 2 nights in a row in a group home, jail, assisted center, orjuvenile correctional facility?NoAre you a refugee?NoWhat [...] one occasion in the past year?Never (0 points)Pbrdgd3KtihujzyrhwfbyMkaqsanlQvrgjkfzg affecting healthPoor/Risky Behaviors:Denies-Communication Barrier:Language Barrier?:No Sexual HistorySocial [...] Status W/U Status Risk Notes Problem Hypocalcemia (7066877) Hypocalcemia (E83. 51) ActiveconfirmedProblemTobacco user (474330658)Nicotine dependence, unspecified, uncomplicated (F17.200)ActiveconfirmedProblemSchizoaffective disorder, bipolar type (31232256)Schizoaffective Disorder, Bipolar type (F25.0)Activeconfirmed ProblemMouth breathing (34329704)Mouth breathing (R06.5)ActiveconfirmedProblem Somnolence (21846703)Somnolence (R40.0)ActiveconfirmedProblemEssential hypertension (70582573)Essential hypertension (I10)ActiveconfirmedProblemMorbid obesity (027325027)Morbid obesity (E66.01)ActiveconfirmedProblemHypersomnia (42459214)Hypersomnia (G47.10)ActiveconfirmedProblemBody mass index 40+ - severely obese (238413053)Body mass index (BMI) 45.0-49.9, adult (Z68.42)Active confirmedProblemPolycystic ovary syndrome (disorder) (814470236)PCOS (polycystic ovarian syndrome) (E28.2)ActiveconfirmedProblemConstipation (10701531) Constipation, unspecified constipation type (K59.00)ActiveconfirmedProblemHigh risk sexual behavior (466011441)Unprotected sex (Z72.51)ActiveconfirmedProblem Chronic fatigue syndrome (67086849)Chronic fatigue (R53.82)Activeconfirmed ProblemInsomnia (097888395)Insomnia, unspecified type (G47.00)Activeconfirmed ProblemBody mass index 40+ - severely obese (762461770)BMI 50.0-59.9, adult (Z68.43)ActiveconfirmedProblemhypercholesterolemia (disorder) (04010798) Hypercholesteremia (E78.00)ActiveconfirmedProblemPure hypercholesterolemia (010766677)Elevated LDL cholesterol level (E78.00)ActiveconfirmedProblemMajor depression, single episode (52058428)Major depressive disorder, remission status unspecified, unspecified whether recurrent (F32.9)ActiveconfirmedProblemInsulin resistance (116390322)Insulin resistance (E88.81)ActiveconfirmedProblemCigarette smoker (69130361)Cigarette smoker (F17.210)Activeconfirmed Vital Signs Heart Rate 78 /min 04/09/2025 Kjuvotuqzod41.5 degrees Bxgdkjckds13/19/2025Respiratory Rate22 /min04/09/2025 Csrweacd33 %04/09/2025lood pressure fxwoobfuk25 mm Hg04/09/20252210Petowp10 in 04/09/2025lood pressure wjrudtyr245 mm Hg04/09/20256336Wxpnja311.6 lbs04/09/2025MI 59.81 kg/m204/09/2025 Encounters Encounter Location Date Provider Diagnosis [facility] [address] [facility] [address] 09/05/2024 Haja Doyle [address] [place] [address] [place] [address]/Frank [facility] [address] [place] [address]/Frank [facility] [place] [address] 04/09/2025Natalija TylerPossible exposure to STI Z20.2FBon [facility]ours [facility] [address] [place] [address]/Mark KhalilCigarette smoker F17.210 ; Hypersomnia G47.10 ; [...] [employer] MDCR GOLD PLUS HMO [address] [address] [place] [address] [id number] Tyson LUIS - patient is the [id number] 2023MEDICAID SEC TO MCARE ADV[address] [place] [id number], KHADIJAHSelf - patient is the [id number] [address] [id number], KHADIJAHSelf - patient is the insured 2021 Medical (General) History Medical History History ICD Code LEARNING DISABILITY DEPRESSIONattempted suicide Jul 2013Surgical History Surgery Date(Month/Year) removed skin lesion on right forearm EGD01/2021Hospitalization History Reason Date(Month/Year) Behavioral Health 10/2018
[2025-07-25 20:29] LABS: Hematocrit 38.2 % (36.0-48.0); Hemoglobin 12.3 g/dL (12.0-16.0); Immature Granulocytes Abs Auto 0.03 10^3/uL (0.00-0.03); Immature Granulocytes Pct Auto 0.4 % (0.0-0.5); Lymphocytes Absolute Auto 3.0 10^3/uL (1.2-3.8); Mean Corpuscular HGB Conc 32.2 g/dL (29.9-35.2); Mean Corpuscular Hemoglobin 29.0 pg (26.7-34.0); Mean Corpuscular Volume 90.1 fL (81.0-99.0); Platelet Count 325 10^3/uL (150-450); Red Blood Count 4.24 10^6/uL (4.20-5.40); White Blood Count 7.0 10^3/uL (4.0-11.0)
[2025-07-25 20:46] LABS: Alanine Aminotransferase 17 U/L (14-59); Albumin Globulin Ratio 0.7; Albumin Level 3.0 g/dL (3.4-5.0); Alkaline Phosphatase 105 U/L (46-116); Anion Gap 8.6; Aspartate Amino Transferase <5 U/L (15-37); Blood Urea Nitrogen 6.0 mg/dL (7.0-18.0); Calcium 8.8 mg/dL (8.5-10.1); Carbon Dioxide 29.9 mmol/L (21.0-32.0); Chloride 106 mmol/L (98-107); Estimated GFR (African America >60 (>=60 mL/min/1.73m^2); Estimated GFR (Non-African Ame >60 (>=60 mL/min/1.73m^2); Globulin 4.5 g/dL; Glucose 100 mg/dL (74-106); Potassium 3.5 mmol/L (3.5-5.1); Sodium 141 mmol/L (136-145); Total Protein 7.5 g/dL (6.4-8.2)
[2025-07-25] MEDS: 0.9 % SODIUM CHLORIDE 1,000 ML 1000 ML IV (20:55)
--- NOTE | 2025-07-25 21:15 | ED.GENADUL1 ---
Documented by User: BEBA Aponte 07/25/25 22:14 HPI HPI - General Adult General Chief complaint: Chest Pain Stated complaint: Chest pain Time Seen by Provider: 07/25/25 20:00 Source: patient Mode of arrival: ambulance Limitations: no limitations History of Present Illness HPI narrative: Patient is a 29-year-old female that presents to the emergency department via EMS with complaints of chest pain/tightness that started today. She describes it as feeling like her lungs were collapsing. She states that she had asthma as a child but does not use an inhaler now. She states she also vomited 6 times today and had diarrhea a few days ago that stopped after she took Pepto-Bismol. She states she has had a cough x 2 weeks. Her last menstrual cycle was in May and she states she may be . Related Data Home Medications ?Medication ?Instructions ?Recorded ?Confirmed benztropine 1 mg tablet 1 mg PO QAM 02/07/25 02/07/25 benztropine 2 mg tablet 2 mg PO QPM 02/07/25 02/07/25 divalproex 250 mg tablet,delayed 250 mg PO BID 02/07/25 02/07/25 release haloperidol 10 mg tablet 10 mg PO DAILY 02/07/25 02/07/25 olanzapine 15 mg tablet 15 mg PO DAILY 02/07/25 02/07/25 trazodone 100 mg tablet 100 mg PO DAILY 02/07/25 02/07/25 Previous Rx's ?Medication ?Instructions ?Recorded bisacodyl 5 mg tablet,delayed 5 mg PO DAILY PRN constipation #10 02/07/25 release (Dulcolax (bisacodyl)) tabs magnesium citrate 296 ml PO ONCE #296 mL 02/07/25 Allergies Allergy/AdvReac Type Severity Reaction Status Date / Time No Known Drug Allergies Allergy Verified 07/25/25 19:56 Opioid HPI Opioid Management Most Recent Opioid Data: Last Pain Scale 8 Today, 19:49 Review of Systems ROS Status of ROS 10 or more systems reviewed and unremarkable except as noted in history and below [facility] Medical History (Updated 07/25/25 @ 22:14 by BEBA Aponte) Schizophrenia ?F20.9 - Schizophrenia, unspecified (ICD-10) Major depression ?F32.9 - Major depressive disorder, single episode, unspecified (ICD-10) Social History Little interest or pleasure in doing things: not at all Feeling down, depressed, or hopeless: not at all Exam Narrative Exam Narrative: General: No distress, age-appropriate, morbidly obese Skin: Warm, dry, no pallor. No rash. Head: Normocephalic, atraumatic. Neck: Supple, non-tender. Eye: Pupils are equal, round and EOMI. No scleral icterus. Ears, Nose, Mouth, and Throat: No nasal mucosal hypertrophy. Oral mucosa is moist, no posterior oropharynx erythema, uvula is mid-line Cardiovascular: Regular Rate and Rhythm without murmur, gallop or rub. Respiratory: No accessory muscle use or respiratory distress. Lungs are clear to auscultation with mild expiratory wheezes, more on the left, no rales or rhonchi Chest Wall: no tenderness Musculoskeletal: Full ROM of all extremities, no calf or popliteal tenderness GI: Abdomen is soft, obese abdomen, non tender to palpation. No masses appreciated. No rebound, guarding, or rigidity noted. Neurological: A&O x4. No cranial nerve dysfunction observed. No truncal ataxia. Moves all extremities. Sensation intact. Psychiatric: Cooperative and interactive. Normal mood and affect. Constitutional Vital Signs, click to edit/add: Last Vital Signs Temp 98.6 F 07/25/25 19:49 Pulse 83 07/25/25 22:15 Resp 16 07/25/25 22:15 BP 176/99 H 07/25/25 19:49 Pulse Ox 99 07/25/25 22:15 O2 Del Method Room Air 07/25/25 22:15 Documenting provider has reviewed patient's vital signs: yes Course Vital Signs Vital signs: Vital Signs Blood Pressure 176/99 H 07/25/25 19:39 Temperature 98.6 F 07/25/25 19:49 Pulse Rate 83 07/25/25 22:15 Respiratory Rate 16 07/25/25 22:15 Blood Pressure 176/99 H 07/25/25 19:49 Pulse Oximetry 99 07/25/25 22:15 Oxygen Delivery Method Room Air 07/25/25 22:15 Medical Decision Making MDM Narrative Medical decision making narrative: The patient is a 29-year-old female presenting with acute onset chest pain described as ?lungs collapsing,? associated with a two-week cough, multiple episodes of vomiting today, and recent diarrhea that resolved with Pepto-Bismol. She has a history of childhood asthma but is not currently on inhaler therapy and reports a possible (last menstrual period in May; serum hCG negative). On arrival, she is tachycardic with a heart rate of 102. ECG demonstrates sinus tachycardia with moderate ST depression, T wave abnormalities, possible anterolateral and inferior ischemia, and new moderate right axis deviation. She speaks in full sentences, no respiratory distress. 97% oxygenation on room air. Mild expiratory wheezes throughout her lung lowery bilaterally, worse on the left. IV placed. Initial laboratory evaluation shows normal CBC and CMP, lipase WNL, a normal troponin (4.7), and normal D-dimer. UA, and chest X-ray are pending. Patient did become nauseous and vomited a little bit in the ED. IV Zofran 4 mg and 1 L normal saline ordered. Albuterol breathing treatment ordered. Second troponin ordered. I did discuss patient's labs and imaging results so far. At this time, my shift is coming to an end at 2200 and patient was signed out to Dr. Santos with her second troponin and chest x-ray read pending for final disposition Differential Diagnosis Differential Diagnosis: ACS, asthma exacerbation, viral syndrome Lab Data Lab results reviewed: Yes I reviewed the patient's lab results Labs: Lab Results 07/25/25 Range/Units 20:10 WBC 7.0 (4.0-11.0) 10^3/uL RBC 4.24 (4.20-5.40) 10^6/uL Hgb 12.3 (12.0-16.0) g/dL Hct 38.2 (36.0-48.0) % MCV 90.1 (81.0-99.0) fL MCH 29.0 (26.7-34.0) pg MCHC 32.2 (29.9-35.2) g/dL RDW 13.6 (11.0-15.0) % Plt Count 325 (150-450) 10^3/uL MPV 10.7 (9.5-13.5) fL Neut % (Auto) 42.6 L (43.0-75.0) % Lymph % (Auto) 42.5 (20.5-60.0) % [place] % (Auto) 9.8 (1.7-12.0) % Eos % (Auto) 4.0 (0.9-7.0) % Baso % (Auto) 0.7 (0.2-2.0) % Neut # (Auto) 3.0 (1.4-6.5) 10^3/uL Lymph # (Auto) 3.0 (1.2-3.8) 10^3/uL [place] # (Auto) 0.7 (0.3-0.8) 10^3/uL Eos # (Auto) 0.3 (0.0-0.7) 10^3/uL Baso # (Auto) 0.1 (0.0-0.1) 10^3/uL Abs Immat Gran (auto) 0.03 (0.00-0.03) 10^3/uL Imm/Tot Granulo (auto) 0.4 (0.0-0.5) % D-Dimer <0.19 (<=0.59) mg/L FEU Sodium 141 (136-145) mmol/L Potassium 3.5 (3.5-5.1) mmol/L Chloride 106 (98-107) mmol/L Carbon Dioxide 29.9 (21.0-32.0) mmol/L Anion Gap 8.6 BUN 6.0 L (7.0-18.0) mg/dL Creatinine 0.72 (0.55-1.02) mg/dL Est GFR ( Amer) >60 (>=60 mL/min/1.73m^2) Est GFR (Non-Af Amer) >60 (>=60 mL/min/1.73m^2) BUN/Creatinine Ratio 8.3 Glucose 100 (74-106) mg/dL Calcium 8.8 (8.5-10.1) mg/dL Total Bilirubin <0.1 L (0.2-1.0) mg/dL AST <5 L (15-37) U/L ALT 17 (14-59) U/L Alkaline Phosphatase 105 (46-116) U/L Troponin I High Sens 4.7 (4.0-51.3) pg/mL Total Protein 7.5 (6.4-8.2) g/dL Albumin 3.0 L (3.4-5.0) g/dL Globulin 4.5 g/dL Albumin/Globulin Ratio 0.7 Lipase 30.0 (16.0-77.0) U/L Serum HCG, Qual Negative (NEGATIVE) ECG Data Attestation: ?I have reviewed the pertinent ECG results. Discharge Plan Discharge Chief Complaint: Chest Pain Clinical Impression: Asthma exacerbation, Acute viral syndrome Patient Disposition: Home, Self-Care Time of Disposition Decision: 22:44 Condition: Good Prescriptions / Home Meds: No Action benztropine 1 mg tablet 1 mg PO QAM benztropine 2 mg tablet 2 mg PO QPM divalproex 250 mg tablet,delayed release (DR/EC) 250 mg PO BID haloperidol 10 mg tablet 10 mg PO DAILY olanzapine 15 mg tablet 15 mg PO DAILY trazodone 100 mg tablet 100 mg PO DAILY magnesium citrate Solution 296 ml PO ONCE Qty: 296 0RF bisacodyl [Dulcolax (bisacodyl)] 5 mg tablet,delayed release (DR/EC) 5 mg PO DAILY PRN (Reason: constipation) Qty: 10 0RF Print Language: Malagasy Instructions: Asthma (ED), Viral Syndrome (ED), Wheezing (ED) Referrals: [facility] [Primary Care Provider] - 1 week Documented by User: Ysabel Santos MD 07/25/25 22:49 HPI HPI - General Adult General Chief complaint: Chest Pain Stated complaint: Chest pain Time Seen by Provider: 07/25/25 20:00 Related Data Home Medications ?Medication ?Instructions ?Recorded ?Confirmed benztropine 1 mg tablet 1 mg PO QAM 02/07/25 02/07/25 benztropine 2 mg tablet 2 mg PO QPM 02/07/25 02/07/25 divalproex 250 mg tablet,delayed 250 mg PO BID 02/07/25 02/07/25 release haloperidol 10 mg tablet 10 mg PO DAILY 02/07/25 02/07/25 olanzapine 15 mg tablet 15 mg PO DAILY 06/19/25 06/19/25 trazodone 100 mg tablet 100 mg PO DAILY 02/07/25 02/07/25 Previous Rx's ?Medication ?Instructions ?Recorded bisacodyl 5 mg tablet,delayed 5 mg PO DAILY PRN constipation #10 02/07/25 release (Dulcolax (bisacodyl)) tabs magnesium citrate 296 ml PO ONCE #296 mL 02/07/25 Allergies Allergy/AdvReac Type Severity Reaction Status Date / Time No Known Drug Allergies Allergy Verified 07/25/25 19:56 Opioid HPI Opioid Management Most Recent Opioid Data: Last Pain Scale 8 Today, 19:49 PFSH [facility] Medical History (Updated 07/25/25 @ 22:14 by BEBA Aponte) Schizophrenia ?F20.9 - Schizophrenia, unspecified (ICD-10) Major depression ?F32.9 - Major depressive disorder, single episode, unspecified (ICD-10) Social History Little interest or pleasure in doing things: not at all Feeling down, depressed, or hopeless: not at all Exam Constitutional Vital Signs, click to edit/add: Last Vital Signs Temp 98.6 F 07/25/25 19:49 Pulse 83 07/25/25 22:15 Resp 16 07/25/25 22:15 BP 176/99 H 07/25/25 19:49 Pulse Ox 99 07/25/25 22:15 O2 Del Method Room Air 07/25/25 22:15 Course Vital Signs Vital signs: Vital Signs Blood Pressure 176/99 H 07/25/25 19:39 Temperature 98.6 F 07/25/25 19:49 Pulse Rate 83 07/25/25 22:15 Respiratory Rate 16 07/25/25 22:15 Blood Pressure 176/99 H 07/25/25 19:49 Pulse Oximetry 99 07/25/25 22:15 Oxygen Delivery Method Room Air 07/25/25 22:15 Medical Decision Making MDM Narrative Medical decision making narrative: The patient is a 29-year-old female presenting with acute onset chest pain described as ?lungs collapsing,? associated with a two-week cough, multiple episodes of vomiting today, and recent diarrhea that resolved with Pepto-Bismol. She has a history of childhood asthma but is not currently on inhaler therapy and reports a possible (last menstrual period in May; serum hCG negative). On arrival, she is tachycardic with a heart rate of 102. ECG demonstrates sinus tachycardia with no acute findings. She speaks in full sentences, no respiratory distress. 97% oxygenation on room air. Mild expiratory wheezes throughout her lung lowery bilaterally, worse on the left. IV placed. Initial laboratory evaluation shows normal CBC and CMP, lipase WNL, a normal troponin (4.7), and normal D-dimer. UA, and chest X-ray are pending. Patient did become nauseous and vomited a little bit in the ED. IV Zofran 4 mg and 1 L normal saline ordered. Albuterol breathing treatment ordered. Second troponin ordered. I did discuss patient's labs and imaging results so far. At this time, my shift is coming to an end at 2200 and patient was signed out to Dr. Santos with her second troponin and chest x-ray read pending for final disposition This patient was seen and evaluated in conjunction with the physician market research assistant. She presents for evaluation of multiple complaints including chest pain, shortness of breath, nausea with vomiting, intermittent abdominal pain, she does not have any inhalers. She is not certain if she was . EMS was called to bring her to the emergency department. On arrival she was tachycardic. EKG was reviewed by myself she was tachycardic with a pulse of 102. An IV was placed and she was medicated with IV fluids and Zofran for her nausea vomiting. Cardiac workup was ordered. She has 2 normal troponins. Electrolytes are normal. D-dimer is normal. Chest x-ray is normal. She was given albuterol treatment for wheezing with clinical improvement. She does not have an inhaler and will be given an inhaler at the time of discharge. I explained to her that in light of her cough, wheezing, shortness of breath, pressure in her chest, nausea and vomiting she likely has a viral syndrome. She will be discharged home with a prescription for refills for the albuterol inhaler and Zofran for her nausea and vomiting. She is otherwise stable and alert for discharge. Lab Data Labs: Lab Results 07/25/25 Range/Units 20:10 WBC 7.0 (4.0-11.0) 10^3/uL RBC 4.24 (4.20-5.40) 10^6/uL Hgb 12.3 (12.0-16.0) g/dL Hct 38.2 (36.0-48.0) % MCV 90.1 (81.0-99.0) fL MCH 29.0 (26.7-34.0) pg MCHC 32.2 (29.9-35.2) g/dL RDW 13.6 (11.0-15.0) % Plt Count 325 (150-450) 10^3/uL MPV 10.7 (9.5-13.5) fL Neut % (Auto) 42.6 L (43.0-75.0) % Lymph % (Auto) 42.5 (20.5-60.0) % [place] % (Auto) 9.8 (1.7-12.0) % Eos % (Auto) 4.0 (0.9-7.0) % Baso % (Auto) 0.7 (0.2-2.0) % Neut # (Auto) 3.0 (1.4-6.5) 10^3/uL Lymph # (Auto) 3.0 (1.2-3.8) 10^3/uL [place] # (Auto) 0.7 (0.3-0.8) 10^3/uL Eos # (Auto) 0.3 (0.0-0.7) 10^3/uL Baso # (Auto) 0.1 (0.0-0.1) 10^3/uL Abs Immat Gran (auto) 0.03 (0.00-0.03) 10^3/uL Imm/Tot Granulo (auto) 0.4 (0.0-0.5) % D-Dimer <0.19 (<=0.59) mg/L FEU Sodium 141 (136-145) mmol/L Potassium 3.5 (3.5-5.1) mmol/L Chloride 106 (98-107) mmol/L Carbon Dioxide 29.9 (21.0-32.0) mmol/L Anion Gap 8.6 BUN 6.0 L (7.0-18.0) mg/dL Creatinine 0.72 (0.55-1.02) mg/dL Est GFR ( Amer) >60 (>=60 mL/min/1.73m^2) Est GFR (Non-Af Amer) >60 (>=60 mL/min/1.73m^2) BUN/Creatinine Ratio 8.3 Glucose 100 (74-106) mg/dL Calcium 8.8 (8.5-10.1) mg/dL Total Bilirubin <0.1 L (0.2-1.0) mg/dL AST <5 L (15-37) U/L ALT 17 (14-59) U/L Alkaline Phosphatase 105 (46-116) U/L Troponin I High Sens 4.7 (4.0-51.3) pg/mL Total Protein 7.5 (6.4-8.2) g/dL Albumin 3.0 L (3.4-5.0) g/dL Globulin 4.5 g/dL Albumin/Globulin Ratio 0.7 Lipase 30.0 (16.0-77.0) U/L Serum HCG, Qual Negative (NEGATIVE) Discharge Plan Discharge Chief Complaint: Chest Pain Clinical Impression: Asthma exacerbation, Acute viral syndrome Patient Disposition: Home, Self-Care Time of Disposition Decision: 22:44 Condition: Good Prescriptions / Home Meds: No Action benztropine 1 mg tablet 1 mg PO QAM benztropine 2 mg tablet 2 mg PO QPM divalproex 250 mg tablet,delayed release (DR/EC) 250 mg PO BID haloperidol 10 mg tablet 10 mg PO DAILY olanzapine 15 mg tablet 15 mg PO DAILY trazodone 100 mg tablet 100 mg PO DAILY magnesium citrate Solution 296 ml PO ONCE Qty: 296 0RF bisacodyl [Dulcolax (bisacodyl)] 5 mg tablet,delayed release (DR/EC) 5 mg PO DAILY PRN (Reason: constipation) Qty: 10 0RF Print Language: Malagasy Instructions: Asthma (ED), Viral Syndrome (ED), Wheezing (ED) Referrals: [facility] [Primary Care Provider] - 1 week
[2025-07-25 21:31] LABS: Lipase 30.0 U/L (16.0-77.0)
[2025-07-25] MEDS: ALBUTEROL SULFATE 2.5 MG/3 ML VIAL NEB IH (22:15)
[2025-07-25] MEDS: ALBUTEROL SULFATE 200 PUFF/6.7 GM INHALER IH (23:09)
== END 2025-07-25 23:12 | disposition home or self-care (01) ==
PROVIDERS: Physician Assistant; Emergency Provider Emergency Medicine
DX: J45.901 Unspecified asthma with (acute) exacerbation (principal); B34.9 Viral infection, unspecified
CPT/HCPCS: 36415; 71045; 80053; 83690; 84484; 84703; 85025; 85378; 87804; 87811; 93005; 94640; 96361; 96374; 99285; J2405

== ENCOUNTER 2025-08-18 19:47 | Emergency (ER) | payer MEDICARE, SELFPAY ==
--- OUTSIDE RECORDS SUMMARY | 2024-07-12 06:00 | XMS_ITS ---
Author Organization [facility] Address [address] [place] [address] Care Team Providers Care Transportation Dispatch Manager Name Role Phone Haja Doyle Primary Care Provider REASON FOR VISIT infection Social History Sex Assigned At : Social History Observation Description Sex Assigned At Female Encounters Encounter Location Date Provider Diagnosis [facility] [address] [place] [address] 07/12/2024 Haja Doyle Plan Of Treatment No Information Progress Notes * OMER LUIS DDOB:[birth year] (29 yo F)Acc No.[id number]:07/12/2024 PROGRESS NOTES Patient: OMER FLORENCE .3Appointment Provider:Radhika Doyle MDDOB:1995???Age: 28 Y???Sex:FemaleDate:4Phone:[phone]:[address] [facility] Subjective: * Chief Complaints: * I nfection * Electronic signature of Haja Doyle MD on 08/18/2025 at 08:41 PM ESTSign off status: Pending * Appointment Provider: Daly Doyle MD Date: 09/11/2023 Generated for Printing/Faxing/eTransmitting on:?08/18/2025 08:41 PM EST
--- OUTSIDE RECORDS SUMMARY | 2024-10-12 05:00 | XMS_ITS ---
Author Organization [facility] Address [address] [facility] [place] [address] Care Team Providers Care Night Nurse Name Role Phone Haja Doyle Primary Care Provider REASON FOR VISIT 4 week f/u Social History Sex Assigned At : Social History Observation Description Sex Assigned At Female Encounters Encounter Location Date Provider Diagnosis [facility] [address] [place] [address] 10/12/2024 Haja Doyle Plan Of Treatment No Information Progress Notes * OMER LUIS DDOB:[birth year] (29 yo F)Acc No.[id number]:10/12/2024 Progress Notes Patient: OMER FLORENCE .3Appointment Provider:Radhika Doyle MDDOB:1995???Age: 28 Y???Sex:FemaleDate:10/12/2024Phone:[phone]:[address] [facility] Subjective: * Chief Complaints: * 4 week f/u Billing Information: * Procedure Codes: * Electronic signature of Haja Doyle MD on 08/18/2025 at 08:40 PM ESTSign off status: Pending * Appointment Provider: Daly Doyle MD Date: 0 10/12/2024 Generated for Printing/Faxing/eTransmitting on:?08/18/2025 08:40 PM EST
--- OUTSIDE RECORDS SUMMARY | 2024-10-12 08:59 | XMS_ITS | Continuity of Care Document ---
Author Organization [facility] Address [address] [place] [address] Phone Care Team Providers Care Cash Applications Analyst Name Role Phone Mykelquinton MARY JANEFarida Unavailable Unavailable Allergies, Adverse Reactions, Alerts Substance Reaction Status Criticality No Known Allergies Active No Inform ation Medications Medication Instructions Dosage Effective Dates (start - stop) Status Comments 09/10 (28) 1 mg-20 mcg (21)/75 mg (7) tablet take 1 tablet by oral route every day 1.00 tablet - Active Zyprexa 15 mg tablet take 1 tablet by oral route every day - Active Zyprexa 15 mg tablet take 1 tablet by oral route every day - Active haloperidol 10 mg tablet take 2 tablet by oral route 2 times every day 20 MG - Active Depakote 500 mg tablet,delayed release take 1 tablet by oral route 2 times every day 500 MG - Active benztropine 1 mg tablet take 1 table in the morning and 2 tablets at night - Active benztropine 1 mg tablet take 1 tablet by oral route 2 times every day 1 MG - Active divalproex ER 250 mg tablet,extended release 24 hr take 2 tablet by oral route every day 500 MG - Active etodolac 400 mg tablet take 1 tablet by oral route 2 times every day with food 400 MG - Active haloperidol 10 mg tablet take 1 tablet by oral route 2 times every day 10 MG - Active amoxicillin 500 mg capsule take 1 capsule by oral route every 8 hours 500 MG - Active trazodone 150 mg tablet take 1 tablet by oral route every day after meals 150 MG - Active Adderall 10 mg tablet take 1 tablet by oral route every day before breakfast 10 MG - Active Isibloom 0.15 mg-0.03 mg tablet take 1 tablet by oral route every day 1.00 tablet - Active albuterol sulfate HFA 90 mcg/actuation aerosol inhaler inhale 2 puff by inhalation route every 4 - 6 hours as needed - Active Procedures Procedure Date Intraoral-periapical 1st Film Limited Oral Eval ROUTINE VENIPUNCTURE OFFICE/OUTPATIENT VISIT, [facility] URINE TEST Obtaining screen pap smear CA screen;pelvic/breast exam OFFICE/OUTPATIENT VISIT, [facility] URINE TEST PREV VISIT, EST, AGE 18-39 URINE TEST BX/CURETT OF CERVIX W/SCOPE BX/CURETT OF CERVIX W/SCOPE BIOPSY OF CERVIX W/SCOPE URINE TEST OFFICE/OUTPATIENT VISIT, EST URINE TEST PREV VISIT, EST, AGE 18-39 OFFICE/OUTPATIENT VISIT, EST Rapid Anitibody HIV-1 / HIV-2 6 ROUTINE VENIPUNCTURE PREV VISIT, EST, AGE 18-39 PREV VISIT, EST, AGE 18-39 URINE TEST Condoms PREV VISIT, EST, AGE 18-39 [facility] SPECIMEN HANDLING (GC/CHLAMYDIA) December [facility] FP MEDICAID [facility] FP MEDICAID [facility] MEDICAID OFFICE/OUTPATIENT VISIT, EST [facility] MEDICAID URINE TEST Medroxyprogesterone Acetate 104 mg injec tion OFFICE/OUTPATIENT VISIT, EST HEP A VACC, PED/ADOL, 2 DOSE H PAPILLOMA VACC 3 DOSE IM OFFICE/OUTPATIENT VISIT, EST PREV VISIT, EST, AGE 12-17 OFFICE/OUTPATIENT VISIT, EST Medrxyprogester acetate inj Advance Directives Directive Yes / No Effective Date File Name No Information Encounters Encounter Description Practice Location Reason(s) For Visit Diagnoses Date Provider Providers Copied on Encounter [facility], [address] [place] [address], [id number] , [place] tel: [phone] [facility] Dental limited (chief complaint) Encounter for screening for dental disorders 5 Cande Iqbal. . [phone] OFFICE/OUTPA TIENT VISIT, [facility], [address] [place] [address], [id number] , [place] tel: [phone] [facility] annual exam (chief complaint) Encounter for gynecological examination (general) (routine) without abnormal findingsBody mass index [BMI] 60.0-69.9, adultEncounter for screening for HIVEncounter for STD screeningOther problem related to lifestyleEncou nter for repeat prescription for BCPEncounter for test, result negative 1 Alexandru Thorpe. [address] [place] [address], [id number], [place]. [phone] OFFICE/OUTPA TIENT VISIT, [facility], [address] [place] [address], [id number] , [place] tel: [phone] DANIEL [facility] care (chief complaint) Left upper quadrant abdominal painConstipati on, unspecified constipation typeBody mass index (BMI) 40.0-44.9, adultBody mass index [BMI] 60.0-69.9, adult Nov- 1 Lokesh DURANP Janet. [address] [place] [address], [id number], [place]. tel:[phone] PREV VISIT, EST, AGE 18-39 [facility], [address], [place], [id number] , [place] tel: [phone] [facility] annual exam (chief complaint) Encntr for labor and delivery nurse exam (general) (routine) w/o abn findingsEncoun ter for screening for HIVEncounter for test, result negativeOther problem related to lifestyleEncou nter for STD screeningEncou nter for repeat prescription for BCPBody mass index (BMI) 40.0-44.9, adult 8 [facility] Ila. [address] [place] [address], [id number], [place]. tel:[phone] [facility], [address] [place] [address], [id number] , [place] tel: [phone] [facility] Colpo (chief complaint) Encounter for test, result negativeLGSIL on cytologic smear of cervix 7 Jeremyi DO Ankit. [address] [place] [address], [id number], [place]. tel:[phone] OFFICE/OUTPA TIENT VISIT, EST [facility], [address] [place] [address], [id number] , [place] tel: [phone] [facility] contraception (chief complaint) Encounter for repeat prescription for BCPLGSIL on pap smear of cervix 6 [facility] Ila. [address] [place] [address], [id number], [place]. tel:[phone] Referring Provider: Ila Horvath [facility] Soledad, [address] [place] [address], [id number] . tel:[phone] PREV VISIT, EST, AGE 18-39 [facility], [address] [place] [address], [id number] , [place] tel:[phone] [facility] annual exam (chief complaint)cont raception (chief complaint)abno rmal pap smear (chief complaint) Encounter for general labor and delivery nurse exam without abnormal findingEncount er for repeat prescription for BCPEncounter for STD screeningOther problem related to lifestyleEncou nter for test, result negativeTricho monal vulvovaginitis Chlamydial infectionASCUS on pap smear of cervix 6 Alexandru [facility] Ila. [address], [place], [id number], [place]. tel:[phone] OFFICE/OUTPA TIENT VISIT, EST [facility], [address], [place], [id number] , [place] tel: [phone] [facility] screening (chief complaint) Encounter for screening for HIVEncntr screen for infections w sexl mode of transmissOther problems related to lifestyle 6 Kalina Vuong. [address], [place], [id number], [place]. 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 [address] [place] [address], [id number], [place]. [phone] PREV VISIT, EST, AGE 18-39 [facility], [address] [place] [address], [id number] , [place] tel: [phone] [facility] annual visit (chief complaint) Gynecological ExaminationOth er specified contraceptive management 4 [facility] Ila. [address] [place] [address], [id number], [place]. tel:[phone] [facility], [address] [place] [address], [id number] , [place] tel:[phone] [facility] No Information 2 Sarath Guzmán. [address] [place] [address], [id number], [place]. [phone] [facility], [address], [place], [id number] , [place] tel: [phone] [facility] No Information 1 Sarath Guzmán. [address], [place], [id number], [place]. tel:[phone] OFFICE/OUTPA TIENT VISIT, [facility], [address], [place], [id number] , [place] tel: [phone] [facility] No Information 0 Sarath Guzmán. [address], [place], [id number], [place]. tel:[phone] [facility], [address], [place], [id number] , [place] tel: [phone] [facility] No Information 0 Donnellwherrol ROJO Tiffany. [address], [place], [id number]. tel:[phone] OFFICE/OUTPA TIENT VISIT, [facility], [address], [place], [id number] , [place] tel: [phone] [facility] No Information 0 Visci DO Ankit. [address], [place], [id number], [place]. tel:[phone] OFFICE/OUTPA TIENT VISIT, [facility], [address], [place], [id number] , [place] tel: [phone] [facility] No Information 9 Mawhirbelen [employer] Tiffany. [address], [place], [id number]. tel:[phone] PREV VISIT, [facility], AGE 12-17 [facility], [address], [place], [id number] , [place] tel: [phone] [facility] No Information 9 No Information OFFICE/OUTPA TIENT VISIT, [facility], [address] [facility], [place], [place], [id number] , [place] tel:[phone] [facility] No Information Sep-0 [id number] [id number] No Information Family History Family Member Type Diagnosis Age At Onset Brother Problem (finding) Alive and well Paternal grandfather Problem (finding) Diabetes mellit us Mother Problem (finding) Alive and well Paternal grandmother Problem (finding) Diabetes mellit us Maternal grandfather Problem (finding) Diabetes mellit us Mother Problem (finding) diabetes mellitus type 2 Maternal grandmother Problem (finding) Diabetes mellit us Father Problem (finding) Alive and well Mother Problem hypertension Sister Problem (finding) Alive and well Payers Payer name Insurance type Covered constitution party ID Bri scottjoslyn(s) Allyson [employer] 17 [id number] D Medicaid [facility] [id number] Social History Type Description Quantity Date Captured Comments Alcohol Use Details wine 2 glasses weekly Caffeine Use Details No Tobacco Use Status Occasional tobacco smoker Smoking Status Light tobacco smoker Sex Female Sexual Orientation Straight or heterosexual Gender Identity Female Chief Complaint And Reason For Visit From encounter dated '10/12/2024 13:59'. Dental limited (chief complaint). Description: Dental limited Reason For Referral Reason For Referral No Information Plan Of Treatment Date Type Action Status Goal Depression screening. Due on due Goal Tdap. Due on due Goal PRAPARE ASSESSMENT. Due on due Goal Hepatitis C screening. Due o n due Goal Hep A. Due on du e Goal RLP. Due on due Goal HPV. Due on due Goal Influenza vaccine. Due on due Goal Tdap Vaccine. Due on 2024 due Goal Unhealthy drug use screening . Due on due Goal Dietary management education , guidance, and counseling completed Goal Tobacco cessation counseling completed Goal Dietary management education , guidance, and counseling completed Goal Dietary management education , guidance, and counseling completed Goal Tobacco cessation counseling completed Goal Tobacco cessation counseling completed Goal Dietary management education , guidance, and counseling completed Goal Tobacco cessation counseling completed Goal Tobacco cessation counseling completed Goal Tobacco cessation counseling completed Referral Ordered: Gastroenterology (related to Left upper quadrant abdominal pain) [id number] Ordered: Referrals: Gastroenterology ordered History Of Present Illness Encounter Date Complaint History Of Prese nt Illness Dental limited Dental limited annual exam Currently pregna nt: no. Patient is not contemplating . The patient states she uses oral contraceptive and condoms, male for control. Last LMP was 12/23/2020. Her menses is regular with normal flow with a frequency of every 28 days. Negative for dysmenorrhea and menorrhagia. Negative for: breast discharge, breast lump(s), breast pain and breast self exam.Negative for Hormone replacement therapy. The patient does use tobacco. Tobacco cessation has been discussed. She does drink alcohol. Additional information: Patient is here for annual exam. Patient states she ran out of OCPs approx 3 weeks ago. would like to restart. States while on OCPs her menses was 5 days and fairly light. Continue to have issues with her stomach and has a follow up appt with GI physician.. est care Pt here to cassidy gomezh eliot. Pt states she was recently in [facility] d/t L upper and lower abdomen pain, states she did have an US and Colonoscopy that came back normal. Pt states she is still having R upper and lower abdomen pain, states her pain is a 9 and that it has been going on for at least a month. Pt requesting a change in her control, states she use to be on Samaria but Dr. Martinez called in Isibloom. Pt states she liked the Samaria better because it helps her lose weight. Pt also states she has hx of skin cancer and has another spot on her L neck/chest area that she would like removed. Pt denies any other issues or concerns. Cathy, RNNoted above. Records from [facility] were obtained and went over labs with patient. Patient states that her pain is better after she has a bowel movement. She was on Colace in the past and would like to try it again. RX sent to pharmacy. Referral to GI was also put in. Advised to call the office if symptoms worsen. 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 Patient is not contemplating . The patient states she uses none and condoms, male for control. Last LMP was 05/23/2018. Her menses is regular with heavy flow with a frequency of every 28 days.Negative for Hormone replacement therapy. The patient does use tobacco. Tobacco cessation has been discussed. She does drink alcohol. Additional information: Patient is here for annual exam. 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 Colpo Patient here for Colpo, LGSIL 04/05/16. Annual 04/05/16. She is currently on BCP, PT (-). Consent signed. Patient is a smoker. -Amelie MARQUEZ contraception (comments) Patietn states she is here to obtain a Rx for OCPs. States she was unable to keep her colposcopy appt due to transportation issues. Understands the importance of having the colposcopy since she had a LGSIL pap contraception Presents for fol low-up appointment for control pills. Patient is presently on 09/10. Patient denies any problems or concerns today. Patient was supposed to start next pack of pills a couple weeks ago, but didn't have ride to picker / packer pills. Patient is planning on having her sisiter take her to picker / packer pills today. Rescheduled for colposcopy on 10/01/2016. --Teto Bernabe R.N. contraception Patient would li ke to start control pills. Consent signed. --Teto Bernabe R.N. abnormal pap smear Pap findings: ASCUS. Additional information: Patient had ASCUS; HPV + pap test on 03/2015. Patient never had colposcopy. Will repap today. --Teto Bernabe R.N. abnormal pap smear (comments) Burgess s used Junel in the past without difficulty. Desires to restart OCPs. She and her partner are no longer together, but states she did take her medication for chlamydia and trich annual exam Currently pregna nt: no. : 1. Patient is not contemplating . The patient states she uses none and condoms, male for control. Last LMP was 03/22/2016. Her menses is regular with light flow with a frequency of every 28 days. There are no associated symptoms. The patient does use tobacco. She does drink alcohol. Additional information: Patient desires to be on control pill, but never started them or picked them up. Tested positive for Chlamydia and Trichomonas 03/01/2016. Patient was treated for both. Reports that partner was treated as well. Patient has HIV and RPR done 02/2016. Will need a pap and ABBY today. Patient has received all 3 Gardasils. --Teto Bernabe R.N. screening Here for screeni ng, denies sx. Hx of HPV. Susanne Viveros R.N. contraception Currently using Junel 09/10 for BC. ALMA NAVARRETE Update Client presents today for an update.Currently using Junel 09/10 for BC. Reports taking BCP since she was 12 years old and takes every morning. Client stated on the longer months I have 2 periods. Education/written material provided on BCP, consent obtained. PT given-results negative. Denies any problems/concerns at this time. Healthy Weight education provided, client declined. ALMA Lozano annual exam Currently pregna nt: no. The patient states she uses oral contraceptive for control. Last LMP was 03/25/2015. Her menses is regular with normal flow with a frequency of every 28 days. Associated symptoms include depression. The patient does use tobacco. She does drink alcohol. Additional information: ALMA NAVARRETE. Functional Status Date Functional Assessmen t No Information Instructions Date Instruction Additional Infor rosey Encouraged to contin ue Junel with the onset of her next menses. Take 1 pill po QD at HS. If misses a pill take it as soon as she remembers and if she misses two pills take two pills one day and two pills the next day. Encouraged condoms for back up BC and to prevent STDs. Related to Encounter for repeat prescription for BCP Encouraged monthly B SE. Recommend calcium 1000mg QD. Encouraged good dietary intake and exercise. Laboratory specimens sent to lab. Patient to call in 2 weeks if desires results.Encouraged to keep appt with GI specialist and follow up stomach pains with PCPDiscussed control options and patient desires OCPs Related to Encounter for gynecological examination (general) (routine) without abnormal findings HIV and RPR drawn an d sent to lab. Patient to call in 1 week for result Related to Encounter for screening for HIV Cervical cultures se nt to lab. Patient to call in 1 week for results Related to Encounter for STD screening Giving encouragement to exercise Related to Body mass index [BMI] 60.0-69.9, adult Dietary management e ducation, guidance, and counseling Related to Body mass index [BMI] 60.0-69.9, adult Giving encouragement to exercise Related to Body mass index [BMI] 60.0-69.9, adult Dietary management e ducation, guidance, and counseling Related to Body mass index [BMI] 60.0-69.9, adult 1. Watch diet and in crease exercise.2. Keep a food log.3. Increase exercise activity. Related to Body mass index (BMI) 40.0-44.9, adult Dietary management e ducation, guidance, and counseling Related to Body mass index [BMI] 60.0-69.9, adult Giving encouragement to exercise Related to Body mass index [BMI] 60.0-69.9, adult Encouraged monthly B SE. Recommend calcium 1000mg QD. Encouraged good dietary intake and exercise. Laboratory specimens sent to lab. Patient to call in 2 weeks if desires results. Related to Encntr for labor and delivery nurse exam (general) (routine) w/o abn findings HIV negative in offi ce today. RPR sent to lab. Related to Encounter for screening for HIV Cervical cultures se nt to lab. Patient to call in 1 week for results Related to Encounter for STD screening Encouraged to start Junel with the onset of her next menses. Take 1 pill po QD at HS. If misses a pill take it as soon as she remembers and if she misses two pills take two pills one day and two pills the next day. Encouraged condoms for back up BC and to prevent STDs. Related to Encounter for repeat prescription for BCP Dietary management e ducation, guidance, and counseling Related to Body mass index (BMI) 40.0-44.9, adult Discussed LGSIL pap and HPV in detail. Encouraged to keep colposcopy appt. Had patient speak with [facility] to see if she was able to assit with transportation. Related to LGSIL on pap smear of cervix Encouraged to contin ue Sprintec. Take 1 pill po QD at HS. If misses a pill take it as soon as she remembers and if she misses two pills take two pills one day and two pills the next day. Encouraged condoms for back up BC and to prevent STDs. Related to Encounter for repeat prescription for BCP Encouraged monthly B SE. Recommend calcium 1000mg QD. Encouraged good dietary intake and exercise. Laboratory specimens sent to lab. Patient to call in 2 weeks if desires results. Related to Encounter for general labor and delivery nurse exam without abnormal finding Encouraged to start Junelwith the onset of her next menses. Take 1 pill po QD at HS. If misses a pill take it as soon as she remembers and if she misses two pills take two pills one day and two pills the next day. Encouraged condoms for back up BC and to prevent STDs. Related to Encounter for repeat prescription for BCP Cervical cultures se nt to lab. Patient to call in 1 week for results Related to Encounter for STD screening No treatment indicat ed today. Call for test results. Related to Encntr screen for infections w sexl mode of transmiss Avoid sexual activit y while you await your test results. Related to Encntr screen for infections w sexl mode of transmiss Encouraged to contin ue Junel. Take 1 pill po QD at HS. If misses a pill take it as soon as she remembers and if she misses two pills take two pills one day and two pills the next day. Encouraged condoms for back up BC and to prevent STDs. Related to Other specified contraceptive management Encouraged monthly B SE. Recommend calcium 1000mg QD. Encouraged good dietary intake and exercise. Laboratory specimens sent to lab. Patient to call in 2 weeks if desires results. 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
--- OUTSIDE RECORDS SUMMARY | 2024-11-14 08:15 | XMS_ITS ---
Author Organization [facility] Address [address] [place] [address] Care Team Providers Care Automatic Centrifugal Station Operator Name Role Phone Haja Doyle Primary Care Provider REASON FOR VISIT pap Social History Sex Assigned At : Social History Observation Description Sex Assigned At Female Encounters Encounter Location Date Provider Diagnosis [facility] [address] [place] [address] 11/14/2024 Haja Doyle Plan Of Treatment No Information Progress Notes * OMER LUIS DDOB:[birth year] (29 yo F)Acc No.[id number]:11/14/2024 Progress Notes Patient: OMER FLORENCE .3Appointment Provider:Radhika Doyle MDDOB:1995???Age: 29 Y???Sex:FemaleDate:11/14/2024Phone:[phone]:[address] [place], [place]-[address] Subjective: * Chief Complaints: * P ap * Electronic signature of Haja Doyle MD on 08/18/2025 at 08:40 PM ESTSign off status: Pending * Appointment Provider: Daly Doyle MD Date: 0 11/14/2024 Generated for Printing/Faxing/eTransmitting on:?08/18/2025 08:40 PM EST
--- OUTSIDE RECORDS SUMMARY | 2024-11-16 04:30 | XMS_ITS ---
Author Organization [facility] Address [address] [facility] [place] [address] Care Team Providers Care Retail Client Solutions Consultant Name Role Phone Haja Doyle Primary Care Provider REASON FOR VISIT 4 WEEK F/U Social History Sex Assigned At : Social History Observation Description Sex Assigned At Female Encounters Encounter Location Date Provider Diagnosis [facility] [address] [place] [address] 11/16/2024 Haja Doyle Plan Of Treatment No Information Progress Notes * OMER LUIS DDOB:[birth year] (29 yo F)Acc No.[id number]:11/16/2024 Progress Notes Patient: OMER FLORENCE .3Appointment Provider:Radhika Doyle MDDOB:1995???Age: 29 Y???Sex:FemaleDate:11/16/2024Phone:[phone]:[address] [facility] Subjective: * Chief Complaints: * 4 WEEK F/U Billing Information: * Procedure Codes: * Electronic signature of Haja Doyle MD on 08/18/2025 at 08:41 PM ESTSign off status: Pending * Appointment Provider: Daly Doyle MD Date: 0 11/16/2024 Generated for Printing/Faxing/eTransmitting on:?08/18/2025 08:41 PM EST
--- OUTSIDE RECORDS SUMMARY | 2024-11-23 05:45 | XMS_ITS ---
Author Organization [facility] Address [address] [place] [address] Care Team Providers Care Pharmacoepidemiologist Name Role Phone Haja Doyle Primary Care Provider REASON FOR VISIT PAP Social History Sex Assigned At : Social History Observation Description Sex Assigned At Female Encounters Encounter Location Date Provider Diagnosis [facility] [address] [place] [address] 11/23/2024 Haja Doyle Plan Of Treatment No Information Progress Notes * OMER LUIS DDOB:[birth year] (29 yo F)Acc No.[id number]:11/23/2024 Progress Notes Patient: OMER FLORENCE .3Appointment Provider:Radhika Doyle MDDOB:1995???Age: 29 Y???Sex:FemaleDate:11/23/2024Phone:[phone]:[address] [facility] Subjective: * Chief Complaints: * P AP * Electronic signature of Haja Doyle MD on 08/18/2025 at 08:40 PM ESTSign off status: Pending * Appointment Provider: Daly Doyle MD Date: 0 11/23/2024 Generated for Printing/Faxing/eTransmitting on:?08/18/2025 08:40 PM EST
--- OUTSIDE RECORDS SUMMARY | 2024-12-13 08:15 | XMS_ITS ---
Author Organization [facility] Address [address] [place] [address] Care Team Providers Care Thoracic Surgeon Name Role Phone Haja Doyle Primary Care Provider REASON FOR VISIT pap Social History Sex Assigned At : Social History Observation Description Sex Assigned At Female Encounters Encounter Location Date Provider Diagnosis [facility] [address] [place] [address] 12/13/2024 Haja Doyle Plan Of Treatment No Information Progress Notes * OMER LUIS DDOB:[birth year] (29 yo F)Acc No.[id number]:12/13/2024 Progress Notes Patient: OMER FLORENCE .3Appointment Provider:Radhika Doyle MDDOB:1995???Age: 29 Y???Sex:FemaleDate:12/13/2024Phone:[phone]:[address] [facility] Subjective: * Chief Complaints: * P ap Billing Information: * Procedure Codes: * Electronic signature of Haja Doyle MD on 08/18/2025 at 08:40 PM ESTSign off status: Pending * Appointment Provider: Daly Doyle MD Date: 0 12/13/2024 Generated for Printing/Faxing/eTransmitting on:?08/18/2025 08:40 PM EST
--- OUTSIDE RECORDS SUMMARY | 2025-02-21 08:00 | XMS_ITS ---
Author Organization [facility] Address [address] [facility] [place] [address] Care Team Providers Care Dock Hand Name Role Phone Haja Doyle Primary Care Provider [phone] Social History Sex Assigned At : Social History Observation Description Sex Assigned At Female Encounters Encounter Location Date Provider Diagnosis [facility] [address] [place] [address] 02/21/2025 Haja Doyle Plan Of Treatment No Information Progress Notes * OMER LUIS DDOB:[birth year] (29 yo F)Acc No.[id number]:02/21/2025 Progress Notes Patient: OMER FLORENCE .3Appointment Provider:?Haja Doyle MDDOB:1995???Age: 29 Y???Sex:FemaleDate:02/21/2025Phone:[phone]:[address] [facility] Billing Information: * Procedure Codes: * Electronic signature of Haja Doyle MD on 08/18/2025 at 08:40 PM ESTSign off status: Pending * Appointment Provider: Daly Doyle MD Date: 0 02/21/2025 Generated for Printing/Faxing/eTransmitting on:?08/18/2025 08:40 PM EST
--- OUTSIDE RECORDS SUMMARY | 2025-04-17 10:45 | XMS_ITS ---
Author Organization [facility] Address [address] [place] [address] Care Team Providers Care Lapel Padder Blindstitch Name Role Phone Haja Doyle Primary Care Provider REASON FOR VISIT acid reflux Social History Sex Assigned At : Social History Observation Description Sex Assigned At Female Encounters Encounter Location Date Provider Diagnosis [facility] [address] [place] [address] 04/17/2025 Haja Doyle Plan Of Treatment No Information Progress Notes * OMER [place] DDOB:[birth year] (29 yo F)Acc No.[id number]:04/17/2025 Progress Notes Patient: OMER FLORENCE .3Appointment Provider:Radhika Doyle MDDOB:1995???Age: 29 Y???Sex:FemaleDate:04/17/2025Phone:[phone]:[address] [facility] Subjective: * Chief Complaints: * A sudheer reflux * Electronic signature of Haja Doyle MD on 08/18/2025 at 08:41 PM ESTSign off status: Pending * Appointment Provider: Daly Doyle MD Date: 0 04/17/2025 Generated for Printing/Faxing/eTransmitting on:?08/18/2025 08:41 PM EST
[2025-08-18 19:52] VITALS: BP 114/84; PULSE 84; TEMP 36.9; O2SAT 95; BMI 56.4
--- NOTE | 2025-08-18 20:08 | ED.GENADUL1 ---
Documented by User: BEBA Aponte 08/18/25 22:27 HPI HPI - General Adult General Chief complaint: Abdominal Pain Stated complaint: Abdominal pain Time Seen by Provider: 08/18/25 20:08 Source: patient Mode of arrival: ambulance Limitations: no limitations History of Present Illness HPI narrative: Patient is a 29-year-old female that presents to the emergency department via EMS with complaints of left upper quadrant pain that became severe today and dropped her to her knees. EMS did give her fentanyl and Zofran and route. She has had this pain intermittently for about a year and a half, but it has been manageable for the most part at home. She states that she has been cramping all week in the left upper quadrant. She denies any abdominal surgeries. Her last BM was yesterday, she reports that she was constipated last week. She denies nausea or vomiting with this pain. She reports they tried to do a colonoscopy about a year ago but she was too constipated to get a thorough examination. Related Data Home Medications ?Medication ?Instructions ?Recorded ?Confirmed benztropine 1 mg tablet 1 mg PO QAM 02/07/25 08/18/25 benztropine 2 mg tablet 2 mg PO QPM 02/07/25 08/18/25 divalproex 250 mg tablet,delayed 250 mg PO BID 02/07/25 08/18/25 release haloperidol 10 mg tablet 10 mg PO DAILY 02/07/25 08/18/25 olanzapine 15 mg tablet 15 mg PO DAILY 02/07/25 08/18/25 trazodone 100 mg tablet 100 mg PO DAILY 02/07/25 08/18/25 albuterol sulfate 90 mcg/actuation 2 puff inhalation Q4H 08/18/25 08/18/25 aerosol inhaler Previous Rx's ?Medication ?Instructions ?Recorded bisacodyl 5 mg tablet,delayed 5 mg PO DAILY PRN constipation #10 02/07/25 release (Dulcolax (bisacodyl)) tabs magnesium citrate 296 ml PO ONCE #296 mL 02/07/25 hyoscyamine sulfate 0.125 mg 0.125 mg PO Q6H PRN abdominal pain 08/18/25 sublingual tablet (Levsin/SL) #20 tabs ondansetron 4 mg disintegrating 4 mg PO Q6H PRN nausea and 08/18/25 tablet vomiting #20 tabs Allergies Allergy/AdvReac Type Severity Reaction Status Date / Time No Known Drug Allergies Allergy Verified 08/18/25 19:57 Opioid HPI Opioid Management Most Recent Opioid Data: Last Pain Scale 6 Today, 21:22 Last OCT Pain Assessment Today, 20:38 Review of Systems ROS Status of ROS 10 or more systems reviewed and unremarkable except as noted in history and below [facility] Medical History (Updated 08/18/25 @ 22:22 by Jonathon Foley) Schizophrenia ?F20.9 - Schizophrenia, unspecified (ICD-10) Major depression ?F32.9 - Major depressive disorder, single episode, unspecified (ICD-10) Social History Little interest or pleasure in doing things: not at all Feeling down, depressed, or hopeless: not at all Exam Narrative Exam Narrative: General: No distress but tearful, morbidly obese, age-appropriate, laying on the ER cart Skin: Warm, dry, no pallor. No rash. Head: Normocephalic, atraumatic. Neck: Supple, non-tender. Eye: Pupils are equal, round and EOMI. No scleral icterus. Ears, Nose, Mouth, and Throat: No nasal mucosal hypertrophy. Oral mucosa is moist, no posterior oropharynx erythema, uvula is mid-line Cardiovascular: Regular Rate and Rhythm without murmur, gallop or rub. Respiratory: No accessory muscle use or respiratory distress. Lungs are clear to auscultation, no wheezing, rales or rhonchi Chest Wall: no tenderness Musculoskeletal: Full ROM of all extremities, no calf or popliteal tenderness GI: Abdomen is soft, obese, tender to the left upper quadrant. No masses appreciated. No rebound, guarding, or rigidity noted. Neurological: A&O x4. No cranial nerve dysfunction observed. No truncal ataxia. Moves all extremities. Sensation intact. Psychiatric: Cooperative and interactive. Normal mood and affect. Constitutional Vital Signs, click to edit/add: Last Vital Signs Temp 98.2 F 08/18/25 21:47 Pulse 89 08/18/25 21:47 Resp 16 08/18/25 21:47 BP 125/80 08/18/25 21:47 Pulse Ox 99 08/18/25 21:47 O2 Del Method Room Air 08/18/25 21:47 Documenting provider has reviewed patient's vital signs: yes Course Vital Signs Vital signs: Vital Signs Temperature 98.5 F 08/18/25 19:52 Pulse Rate 84 08/18/25 19:52 Respiratory Rate 16 08/18/25 19:52 Blood Pressure 114/84 08/18/25 19:52 Pulse Oximetry 95 08/18/25 19:52 Oxygen Delivery Method Room Air 08/18/25 19:52 Temperature 98.2 F 08/18/25 21:47 Pulse Rate 89 08/18/25 21:47 Respiratory Rate 16 08/18/25 21:47 Blood Pressure 125/80 08/18/25 21:47 Pulse Oximetry 99 08/18/25 21:47 Oxygen Delivery Method Room Air 08/18/25 21:47 Medical Decision Making MDM Narrative Medical decision making narrative: The patient is a 29-year-old female presenting with a history of left upper quadrant (LUQ) pain, which has been intermittent for approximately a year and a half, but has worsened acutely today. The pain is described as cramping and has become severe, dropping the patient to her knees. She denies any associated nausea, vomiting, or changes in bowel movements except for constipation noted last week. The patient's vital signs are stable, and she is afebrile. Labs, including WBC, CMP, and lipase, are within normal limits, which decreases concern for infectious or pancreatic causes of her pain. Given the patient's history of intermittent pain and constipation, colonic obstruction, including functional or mechanical constipation, is a significant consideration. Diverticulitis remains a differential diagnosis, although the absence of fever, leukocytosis, and left shift makes this less likely. Pain relief with Toradol (30 mg IV) further suggests an inflammatory or musculoskeletal cause of the pain, though this does not rule out a gastrointestinal origin. CT abdomen/pelvis with IV contrast is currently pending to further evaluate for potential GI pathology (such as diverticulitis, colonic obstruction, or masses) and any abdominal or pelvic organ involvement. At this time, 2199, patient's case and care was signed out to Dr. Foley, disposition pending CT abdomen/pelvis results and pain control. Peripheral IV established blood drawn and sent for testing. The patient also underwent CT scanning of the abdomen pelvis with IV contrast. results = normal white blood cell count at 7.4. Borderline anemia with hemoglobin 11.3. Normal platelet count. Unremarkable CMP. Negative lipase. CT, per radiologist = no acute abnormality within the abdomen pelvis. Patient informed of negative results and was given reassurance. She was discharged home with prescriptions for Zofran for any resultant or continued nausea and Levsin for any abdominal pain. She was given referral information for Dr. Beaulieu, local prison guard. Differential Diagnosis Differential Diagnosis: Diverticulitis, Colonic obstruction, pancreatitis, IBS Lab Data Labs: Lab Results 08/18/25 Range/Units 20:15 WBC 7.4 (4.0-11.0) 10^3/uL RBC 3.88 L (4.20-5.40) 10^6/uL Hgb 11.3 L (12.0-16.0) g/dL Hct 35.2 L (36.0-48.0) % MCV 90.7 (81.0-99.0) fL MCH 29.1 (26.7-34.0) pg MCHC 32.1 (29.9-35.2) g/dL RDW 14.0 (11.0-15.0) % Plt Count 302 (150-450) 10^3/uL MPV 10.3 (9.5-13.5) fL Neut % (Auto) 55.6 (43.0-75.0) % Lymph % (Auto) 29.0 (20.5-60.0) % Carver % (Auto) 10.1 (1.7-12.0) % Eos % (Auto) 4.3 (0.9-7.0) % Baso % (Auto) 0.5 (0.2-2.0) % Neut # (Auto) 4.1 (1.4-6.5) 10^3/uL Lymph # (Auto) 2.2 (1.2-3.8) 10^3/uL Carver # (Auto) 0.8 (0.3-0.8) 10^3/uL Eos # (Auto) 0.3 (0.0-0.7) 10^3/uL Baso # (Auto) 0.0 (0.0-0.1) 10^3/uL Abs Immat Gran (auto) 0.04 H (0.00-0.03) 10^3/uL Imm/Tot Granulo (auto) 0.5 (0.0-0.5) % Sodium 141 (136-145) mmol/L Potassium 3.9 (3.5-5.1) mmol/L Chloride 104 (98-107) mmol/L Carbon Dioxide 29.1 (21.0-32.0) mmol/L Anion Gap 11.8 BUN 5.0 L (7.0-18.0) mg/dL Creatinine 0.68 (0.55-1.02) mg/dL Est GFR ( Amer) >60 (>=60 mL/min/1.73m^2) Est GFR (Non-Af Amer) >60 (>=60 mL/min/1.73m^2) BUN/Creatinine Ratio 7.4 Glucose 86 (74-106) mg/dL Calcium 8.0 L (8.5-10.1) mg/dL Total Bilirubin 0.2 (0.2-1.0) mg/dL AST 11 L (15-37) U/L ALT <6 L (14-59) U/L Alkaline Phosphatase 81 (46-116) U/L Total Protein 7.2 (6.4-8.2) g/dL Albumin 3.0 L (3.4-5.0) g/dL Globulin 4.2 g/dL Albumin/Globulin Ratio 0.7 Lipase 22.0 (16.0-77.0) U/L Discharge Plan Discharge Chief Complaint: Abdominal Pain Clinical Impression: Abdominal pain Patient Disposition: Home, Self-Care Time of Disposition Decision: 22:21 Prescriptions / Home Meds: New hyoscyamine sulfate [Levsin/SL] 0.125 mg tablet, sublingual 0.125 mg PO Q6H PRN (Reason: abdominal pain) Qty: 20 0RF ondansetron 4 mg tablet,disintegrating 4 mg PO Q6H PRN (Reason: nausea and vomiting) Qty: 20 0RF No Action albuterol sulfate 90 mcg/actuation HFA aerosol inhaler 2 puff INHALATION Q4H benztropine 1 mg tablet 1 mg PO QAM benztropine 2 mg tablet 2 mg PO QPM divalproex 250 mg tablet,delayed release (DR/EC) 250 mg PO BID haloperidol 10 mg tablet 10 mg PO DAILY olanzapine 15 mg tablet 15 mg PO DAILY trazodone 100 mg tablet 100 mg PO DAILY magnesium citrate Solution 296 ml PO ONCE Qty: 296 0RF bisacodyl [Dulcolax (bisacodyl)] 5 mg tablet,delayed release (DR/EC) 5 mg PO DAILY PRN (Reason: constipation) Qty: 10 0RF Print Language: Ukrainian Instructions: Abdominal Pain (ED) Referrals: JENNY BEAULIEU [Physician, Gastroenterology] - As soon as possible [facility] [Primary Care Provider] - 1 week Documented by User: Jonathon Foley 08/18/25 22:23 HPI HPI - General Adult General Chief complaint: Abdominal Pain Stated complaint: Abdominal pain Time Seen by Provider: 08/18/25 20:08 Related Data Home Medications ?Medication ?Instructions ?Recorded ?Confirmed benztropine 1 mg tablet 1 mg PO QAM 02/07/25 08/18/25 benztropine 2 mg tablet 2 mg PO QPM 02/07/25 08/18/25 divalproex 250 mg tablet,delayed 250 mg PO BID 02/07/25 08/18/25 release haloperidol 10 mg tablet 10 mg PO DAILY 02/07/25 08/18/25 olanzapine 15 mg tablet 15 mg PO DAILY 02/07/25 08/18/25 trazodone 100 mg tablet 100 mg PO DAILY 02/07/25 08/18/25 albuterol sulfate 90 mcg/actuation 2 puff inhalation Q4H 08/18/25 08/18/25 aerosol inhaler Previous Rx's ?Medication ?Instructions ?Recorded bisacodyl 5 mg tablet,delayed 5 mg PO DAILY PRN constipation #10 02/07/25 release (Dulcolax (bisacodyl)) tabs magnesium citrate 296 ml PO ONCE #296 mL 02/07/25 hyoscyamine sulfate 0.125 mg 0.125 mg PO Q6H PRN abdominal pain 08/18/25 sublingual tablet (Levsin/SL) #20 tabs ondansetron 4 mg disintegrating 4 mg PO Q6H PRN nausea and 08/18/25 tablet vomiting #20 tabs Allergies Allergy/AdvReac Type Severity Reaction Status Date / Time No Known Drug Allergies Allergy Verified 08/18/25 19:57 Opioid HPI Opioid Management Most Recent Opioid Data: Last Pain Scale 6 Today, 21:22 Last MAR Pain Assessment Today, 20:38 [facility] Medical History (Updated 08/18/25 @ 22:22 by Jonathon Foley) Schizophrenia ?F20.9 - Schizophrenia, unspecified (ICD-10) Major depression ?F32.9 - Major depressive disorder, single episode, unspecified (ICD-10) Social History Little interest or pleasure in doing things: not at all Feeling down, depressed, or hopeless: not at all Exam Constitutional Vital Signs, click to edit/add: Last Vital Signs Temp 98.2 F 08/18/25 21:47 Pulse 89 08/18/25 21:47 Resp 16 08/18/25 21:47 BP 125/80 08/18/25 21:47 Pulse Ox 99 08/18/25 21:47 O2 Del Method Room Air 08/18/25 21:47 Course Vital Signs Vital signs: Vital Signs Temperature 98.5 F 08/18/25 19:52 Pulse Rate 84 08/18/25 19:52 Respiratory Rate 16 08/18/25 19:52 Blood Pressure 114/84 08/18/25 19:52 Pulse Oximetry 95 08/18/25 19:52 Oxygen Delivery Method Room Air 08/18/25 19:52 Temperature 98.2 F 08/18/25 21:47 Pulse Rate 89 08/18/25 21:47 Respiratory Rate 16 08/18/25 21:47 Blood Pressure 125/80 08/18/25 21:47 Pulse Oximetry 99 08/18/25 21:47 Oxygen Delivery Method Room Air 08/18/25 21:47 Medical Decision Making MDM Narrative Medical decision making narrative: Peripheral IV established blood drawn and sent for testing. The patient also underwent CT scanning of the abdomen pelvis with IV contrast. results = normal white blood cell count at 7.4. Borderline anemia with hemoglobin 11.3. Normal platelet count. Unremarkable CMP. Negative lipase. CT, per radiologist = no acute abnormality within the abdomen pelvis. Patient informed of negative results and was given reassurance. She was discharged home with prescriptions for Zofran for any resultant or continued nausea and Levsin for any abdominal pain. She was given referral information for Dr. Beaulieu, local prison guard. Medical Records Medical records reviewed: Yes I reviewed the patient's medical records Lab Data Lab results reviewed: Yes I reviewed the patient's lab results Labs: Lab Results 08/18/25 Range/Units 20:15 WBC 7.4 (4.0-11.0) 10^3/uL RBC 3.88 L (4.20-5.40) 10^6/uL Hgb 11.3 L (12.0-16.0) g/dL Hct 35.2 L (36.0-48.0) % MCV 90.7 (81.0-99.0) fL MCH 29.1 (26.7-34.0) pg MCHC 32.1 (29.9-35.2) g/dL RDW 14.0 (11.0-15.0) % Plt Count 302 (150-450) 10^3/uL MPV 10.3 (9.5-13.5) fL Neut % (Auto) 55.6 (43.0-75.0) % Lymph % (Auto) 29.0 (20.5-60.0) % Carver % (Auto) 10.1 (1.7-12.0) % Eos % (Auto) 4.3 (0.9-7.0) % Baso % (Auto) 0.5 (0.2-2.0) % Neut # (Auto) 4.1 (1.4-6.5) 10^3/uL Lymph # (Auto) 2.2 (1.2-3.8) 10^3/uL Carver # (Auto) 0.8 (0.3-0.8) 10^3/uL Eos # (Auto) 0.3 (0.0-0.7) 10^3/uL Baso # (Auto) 0.0 (0.0-0.1) 10^3/uL Abs Immat Gran (auto) 0.04 H (0.00-0.03) 10^3/uL Imm/Tot Granulo (auto) 0.5 (0.0-0.5) % Sodium 141 (136-145) mmol/L Potassium 3.9 (3.5-5.1) mmol/L Chloride 104 (98-107) mmol/L Carbon Dioxide 29.1 (21.0-32.0) mmol/L Anion Gap 11.8 BUN 5.0 L (7.0-18.0) mg/dL Creatinine 0.68 (0.55-1.02) mg/dL Est GFR ( Amer) >60 (>=60 mL/min/1.73m^2) Est GFR (Non-Af Amer) >60 (>=60 mL/min/1.73m^2) BUN/Creatinine Ratio 7.4 Glucose 86 (74-106) mg/dL Calcium 8.0 L (8.5-10.1) mg/dL Total Bilirubin 0.2 (0.2-1.0) mg/dL AST 11 L (15-37) U/L ALT <6 L (14-59) U/L Alkaline Phosphatase 81 (46-116) U/L Total Protein 7.2 (6.4-8.2) g/dL Albumin 3.0 L (3.4-5.0) g/dL Globulin 4.2 g/dL Albumin/Globulin Ratio 0.7 Lipase 22.0 (16.0-77.0) U/L Imaging Data CT scan - abdomen: Attestation: I have reviewed the pertinent imaging results. Radiologist's impression: No acute abnormality within the abdomen pelvis. Discharge Plan Discharge Chief Complaint: Abdominal Pain Clinical Impression: Abdominal pain Patient Disposition: Home, Self-Care Time of Disposition Decision: 22:21 Prescriptions / Home Meds: New hyoscyamine sulfate [Levsin/SL] 0.125 mg tablet, sublingual 0.125 mg PO Q6H PRN (Reason: abdominal pain) Qty: 20 0RF ondansetron 4 mg tablet,disintegrating 4 mg PO Q6H PRN (Reason: nausea and vomiting) Qty: 20 0RF No Action albuterol sulfate 90 mcg/actuation HFA aerosol inhaler 2 puff INHALATION Q4H benztropine 1 mg tablet 1 mg PO QAM benztropine 2 mg tablet 2 mg PO QPM divalproex 250 mg tablet,delayed release (DR/EC) 250 mg PO BID haloperidol 10 mg tablet 10 mg PO DAILY olanzapine 15 mg tablet 15 mg PO DAILY trazodone 100 mg tablet 100 mg PO DAILY magnesium citrate Solution 296 ml PO ONCE Qty: 296 0RF bisacodyl [Dulcolax (bisacodyl)] 5 mg tablet,delayed release (DR/EC) 5 mg PO DAILY PRN (Reason: constipation) Qty: 10 0RF Print Language: Ukrainian Instructions: Abdominal Pain (ED) Referrals: JENNY BEAULIEU [Physician, Gastroenterology] - As soon as possible [facility] [Primary Care Provider] - 1 week
[2025-08-18 20:25] LABS: Hematocrit 35.2 % (36.0-48.0); Hemoglobin 11.3 g/dL (12.0-16.0); Immature Granulocytes Abs Auto 0.04 10^3/uL (0.00-0.03); Immature Granulocytes Pct Auto 0.5 % (0.0-0.5); Lymphocytes Absolute Auto 2.2 10^3/uL (1.2-3.8); Mean Corpuscular HGB Conc 32.1 g/dL (29.9-35.2); Mean Corpuscular Hemoglobin 29.1 pg (26.7-34.0); Mean Corpuscular Volume 90.7 fL (81.0-99.0); Platelet Count 302 10^3/uL (150-450); Red Blood Count 3.88 10^6/uL (4.20-5.40); White Blood Count 7.4 10^3/uL (4.0-11.0)
[2025-08-18 20:38] LABS: Albumin Globulin Ratio 0.7; Albumin Level 3.0 g/dL (3.4-5.0); Alkaline Phosphatase 81 U/L (46-116); Anion Gap 11.8; Aspartate Amino Transferase 11 U/L (15-37); Blood Urea Nitrogen 5.0 mg/dL (7.0-18.0); Calcium 8.0 mg/dL (8.5-10.1); Carbon Dioxide 29.1 mmol/L (21.0-32.0); Chloride 104 mmol/L (98-107); Estimated GFR (African America >60 (>=60 mL/min/1.73m^2); Estimated GFR (Non-African Ame >60 (>=60 mL/min/1.73m^2); Globulin 4.2 g/dL; Glucose 86 mg/dL (74-106); Lipase 22.0 U/L (16.0-77.0); Potassium 3.9 mmol/L (3.5-5.1); Sodium 141 mmol/L (136-145); Total Protein 7.2 g/dL (6.4-8.2)
[2025-08-18] MEDS: KETOROLAC TROMETHAMINE 30 MG/ML VIAL IVP (20:38)
[2025-08-18 20:39] LABS: Alanine Aminotransferase <6 U/L (14-59)
--- OUTSIDE RECORDS SUMMARY | 2025-08-18 20:40 | XMS_ITS | Clinical Summary ---
Author Organization [employer] [facility] Address [id number] [place] [address] Care Team Providers Care Labor Expediter Name Role Phone Ernie Martinez MD Primary Care Provider Allergies Active AllergyReactionsCriticalityNoted DateCommentsLevonorgestrel-Ethinyl WpzzsoMffiwZtebxe23/21/2018 Medications * This document contains information received from the source organization and may not represent a complete record from that organization. MedicationSigDispense QuantityRefillsLast FilledStart DateEnd DateStatus haloperidoL (HALDOL) 10 mg tablet Take 10 mg by mouth 2 (two) times a day. Active divalproex sodium (DIVALPROEX ORAL) Take 750 mg by mouth 2 (two) times a day. Active benztropine (COGENTIN) 1 mg tablet Take 1 mg by mouth 2 (two) times a day.Active desogestreL-ethinyl estradioL (APRI) 0.15-0.03 mg per tablet Take 1 tablet by mouth daily.Active trazodone HCl (TRAZODONE ORAL) Take 250 mg by mouth nightly. Active OLANZapine (ZyPREXA) 20 mg tablet Take 20 mg by mouth nightly.Active albuterol (PROVENTIL HFA;VENTOLIN HFA) 90 mcg/actuation inhaler Inhale 2 puffs every 6 (six) hours as needed for wheezing.Active OLANZapine (ZyPREXA) 20 mg tablet Take 20 mg by mouth before breakfast. Active pantoprazole (PROTONIX) 40 mg EC tablet Take 1 tablet (40 mg total) by mouth every morning before breakfast. 30 tablet 11/14/2020ctive Active Problems ProblemNoted DateDiagnosed DateIntractable abdominal pain11/11/2020 Schizoaffective disorder, bipolar type10/12/2017Cannabis use disorder, moderate, gzswabltty08/21/2018 Social History Tobacco UseTypesPacks/DayYears UsedDateSmoking Tobacco: Every DayCigarettes CigarsSmokeless Tobacco: NeverAlcohol UseStandard Drinks/WeekCommentsYes2 (1 standard drink = 0.6 oz pure alcohol)per dayFinst. mark's hospital [facility] - Occupational Stress QuestionnaireAnswerDate RecordedDo you feel stress - tense, restless, nervous, or anxious, or unable to sleep at night because your mind is troubled all the time - these days?Not at all11/12/2020xercise Vital SignAnswerDate RecordedOn average, how many days per week do you engage in moderate to strenuous exercise (like a brisk walk)?0 days11/12/2020On average, how many minutes do you engage in exercise at this level?0 min11/12/2020 ChildcareAnswerDate RjrjbtveMpwzrmrknFiowocw56/10/2019EmploymentAnswerDate EecdhpjqZhpppkjxbxJalromt27/10/2019Purpose - LifeAnswerDate RecordedPurpose and direction in atmuQaouxgz63/10/2021CommentsNoSex and Gender Information ValueDate RecordedSex Assigned at BirthNot on fileLegal OeiVqymep60/04/2015 2:13 PM EDTGender IdentityNot on fileSexual OrientationNot on file Last Filed Vital Signs Vital SignReadingTime TakenCommentsBlood Rblttmdl948/8211/13/2020 12:44 PM EDT Fundc12524/25/2021 12:44 PM CHDSsaaibnrsxy88.8 ??C (98.2 ??F)11/13/2020 12:44 PM EDTRespiratory Bjmu177811/13/2020 12:44 PM EDTOxygen Ovgzluhmir94%11/13/2020 12:17 PM EDTInhaled Oxygen Concentration--Vltfjj779.7 kg (391 lb 12.1 oz)11/13/2020 10:32 AM IITGyarxb554.2 cm (5' 7 )11/13/2020 10:32 AM EDTBody Mass Index61.36 11/13/2020 10:32 AM EDT Plan of Treatment Health MaintenanceDue DateLast DoneCommentsDepression Kgtmgexbh12/21/2006Tobacco Ycelknsln22/21/2006dult BMI Jwuemcypi32/21/2012DTaP,Tdap and Td Vaccines (1 - Tdap)2012Pap Smear2014Influenza Tannazc6104/22/2025 Goals GoalPatient Goal TypeAssociated ProblemsRecent ProgressPatient-Stated?Author Home Zaira Tam LSW Note: Evaluation of progress towards goal: Safe dc transition from hospital with [facility] to [facility]. Medical Devices Not on file Insurance * Guarantor: Jackie Denton DAccoduong TypeRelation to PatientDate of PhoneBilling AddressPersonal/XlqeyoFgaw01/21/[address] [address] Advance Directives * Full Code (Latest Code Status on File) Date ActivatedDate InactivatedComments11/12/2020 8:35 AM11/13/2020 5:45 PM * Full Code Date ActivatedDate InactivatedComments10/26/2017 9:13 AM10/26/2017 1:50 PM Care Teams Team MemberRelationshipSpecialtyStart DateEnd Date Ernie Martinez MD PCP - GeneralFamily Medicine11/12/20
--- OUTSIDE RECORDS SUMMARY | 2025-08-18 20:41 | XMS_ITS | Patient Health Record ---
Author Organization [facility] es Address [address] [place] [address] Care Team Providers Care Supervisor Soakers Name Role Phone Haja Doyle Primary Care Provider Urban Crouch Unavailable [phone] Connie Mesa Unavailable [phone] Allergies No Known Allergies Results Component Value Reference Range Notes Chlamydia/GC/Trich HAYLEY Reviewed date:04/23/2025 08:55:00 AM Interpretation: Performing Lab:, [facility], [address] [place] Notes/Report: Chlamydia Trachomotis, HAYLEY Negative Negative Neisseria Gonorrhoeae, NAANegativeNegativeTrichomonas NAANegativeNegative Performed at: =[address] [id number] Podiatric Aide: Cynthia Granda MD, Phone: [phone] Reason For Referral Reason SCHEDULED 10/16/24 Hypersomnia, BMI 59, mouth breathing, smoker Diagnosis 1 Hypersomnia (G47.10) Referral Organization [facility] ices Referring Provider First Name Urban Referring Provider Last Name Willa Referring Provider Speciality Family Pra ctice Referred Provider [facility], . 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 Stress is when someone feels tense, nervous, anxious, or cant sleep at night because their mind is troubledA little bitIn the past year have you spent more than 2 nights in a row in a group home, skilled nursing, intermediate center, orjuvenile correctional facility?NoAre you a refugee?NoWhat [...] one occasion in the past year?Never (0 points)Yrfckq6NnkbmfsfcgefddYpzegnggNruqwniwf affecting healthPoor/Risky Behaviors:Denies-Communication Barrier:Language Barrier?:No Sexual HistorySocial [...] wine No alcohol or other drug use - smokes 1-2 black and milds a day or every other day. No alcohol or other drug use No alcohol or other drug use Problems Problem Type SNOMED Code ICD Code Onset Dates Problem Status W/U Status Risk Notes Problem Hypocalcemia (0686343) Hypocalcemia (E83. 51) ActiveconfirmedProblemTobacco user (269439264)Nicotine dependence, unspecified, uncomplicated (F17.200)ActiveconfirmedProblemSchizoaffective disorder, bipolar type (88619285)Schizoaffective Disorder, Bipolar type (F25.0)Activeconfirmed ProblemMouth breathing (22460438)Mouth breathing (R06.5)ActiveconfirmedProblem Somnolence (79431456)Somnolence (R40.0)ActiveconfirmedProblemEssential hypertension (29913652)Essential hypertension (I10)ActiveconfirmedProblemMorbid obesity (912389665)Morbid obesity (E66.01)ActiveconfirmedProblemHypersomnia (27841257)Hypersomnia (G47.10)ActiveconfirmedProblemBody mass index 40+ - severely obese (093804593)Body mass index (BMI) 45.0-49.9, adult (Z68.42)Active confirmedProblemPolycystic ovary syndrome (disorder) (470875092)PCOS (polycystic ovarian syndrome) (E28.2)ActiveconfirmedProblemConstipation (26035155) Constipation, unspecified constipation type (K59.00)ActiveconfirmedProblemHigh risk sexual behavior (216238762)Unprotected sex (Z72.51)ActiveconfirmedProblem Chronic fatigue syndrome (44669713)Chronic fatigue (R53.82)Activeconfirmed ProblemInsomnia (159736126)Insomnia, unspecified type (G47.00)Activeconfirmed ProblemBody mass index 40+ - severely obese (237564670)BMI 50.0-59.9, adult (Z68.43)ActiveconfirmedProblemhypercholesterolemia (disorder) (32944534) Hypercholesteremia (E78.00)ActiveconfirmedProblemPure hypercholesterolemia (153377046)Elevated LDL cholesterol level (E78.00)ActiveconfirmedProblemMajor depression, single episode (32490445)Major depressive disorder, remission status unspecified, unspecified whether recurrent (F32.9)ActiveconfirmedProblemInsulin resistance (538457346)Insulin resistance (E88.81)ActiveconfirmedProblemCigarette smoker (03365734)Cigarette smoker (F17.210)Activeconfirmed Vital Signs Heart Rate 78 /min 04/09/2025 Qqzrpxwozle94.5 degrees Beoctwfsis38/19/2025Respiratory Rate22 /min04/09/2025 Epzivevi77 %04/09/2025lood pressure iombicgbk43 mm Hg04/09/20258109Oxvacs34 in 04/09/2025lood pressure iefxpqgj131 mm Hg04/09/20257946Dfczzb288.6 lbs04/09/2025MI 59.81 kg/m204/09/2025 Encounters Encounter Location Date Provider Diagnosis [facility] [address] [place] [address] 09/05/2024 Haja Doyle [address] [place] [address] [place] [address]/[facility] [address] [place] [address]/[facility] [place] [address] 04/09/2025Natalija TylerPossible exposure to STI Z20.2FS[facility] [address] [place] [address]/Mark KhalilCigarette smoker F17.210 ; Hypersomnia G47.10 ; [...] [employer] [address] [address] [place] [address] [id number] Tyson LUIS - patient is the [id number] 2023MEDICAID SEC TO [address]ARE AD[address] [place] [id number], KHADIJAHSelf - patient is the [id number] [address] [id number], KHADIJAHSelf - patient is the insured 2021 Medical (General) History Medical History History ICD Code LEARNING DISABILITY DEPRESSIONattempted suicide Jul 2013Surgical History Surgery Date(Month/Year) removed skin lesion on right forearm EGD01/2021Hospitalization History Reason Date(Month/Year) Behavioral Health 10/2018
[2025-08-18 21:47] VITALS: BP 125/80; PULSE 89; TEMP 36.8; O2SAT 99
[2025-08-18 22:41] VITALS: BP 138/91; PULSE 92; O2SAT 99
== END 2025-08-18 22:44 | disposition home or self-care (01) ==
PROVIDERS: Physician Assistant; Emergency Provider Emergency Medicine
DX: R10.12 Left upper quadrant pain (principal); E66.01 Morbid (severe) obesity due to excess calories; Z68.43 Body mass index [BMI] 50.0-59.9, adult
CPT/HCPCS: 36415; 74177; 80053; 83690; 85025; 96374; 99285; J1885; Q9967